=== PATIENT | female | born 1970 | race Hispanic/Latino ===

== ENCOUNTER 2016-10-30 20:01 | Emergency (ER) | payer MEDICAID, OTHER ==
[2016-10-30] MEDS ORDERED: NORCO 7.5/325 PO ONE (21:30)
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
[2016-10-30 22:23] VITALS: BP 123/80
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
== END 2016-10-30 23:49 | disposition home or self-care (01) ==
LOC: ED 20:01
DX: S13.4XXA Sprain of ligaments of cervical spine, initial encounter (principal); F17.200 Nicotine dependence, unspecified, uncomplicated; V49.59XA Passenger injured in collision with other motor vehicles in traffic accident, initial encounter; Y93.9 Activity, unspecified; Y92.9 Unspecified place or not applicable; Y99.9 Unspecified external cause status
CPT/HCPCS: 72072; 72100; 99283

== ENCOUNTER 2016-11-19 10:08 | Emergency (ER) | payer SELFPAY ==
[2016-11-19 10:16] VITALS: BP 148/96
--- NOTE | 2016-11-19 10:43 | XRay Report ---
RIGHT ANKLE, 3 views: History: Right ankle pain. Bone mineralization is normal. No acute osseous abnormality or joint pathology is identified. The soft tissues are unremarkable. Moderate plantar spur is noted. IMPRESSION: No evidence for acute injury. Plantar spur.
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
[2016-11-19] MEDS ORDERED: MOTRIN PO ONE (11:56)
== END 2016-11-19 12:00 | disposition home or self-care (01) ==
LOC: ED 10:08
DX: S93.401A Sprain of unspecified ligament of right ankle, initial encounter (principal); F17.210 Nicotine dependence, cigarettes, uncomplicated; X58.XXXA Exposure to other specified factors, initial encounter; Y93.89 Activity, other specified; Y92.89 Other specified places as the place of occurrence of the external cause; Y99.8 Other external cause status
CPT/HCPCS: 99284

== ENCOUNTER 2016-12-07 15:50 | Inpatient (IN) | payer OTHER ==
[2016-12-07 16:45] LABS: Basophils % (Auto) 0.9 % (0.0-1.8); Eosinophils % (Auto) 1.6 % (0.0-4.3); Hematocrit 48.1 % (30.3-42.9); Hemoglobin 16.2 gm/dl (10.1-14.3); Mean Corpuscular HGB Conc 34 % (30-34); Mean Corpuscular Hemoglobin 32 pg (28-32); Mean Corpuscular Volume 95 fl (79-97); Platelet Count 248 K/mm3 (140-440); Red Blood Count 5.09 M/mm3 (3.65-5.03); Red Cell Distribution Width 14.3 % (13.2-15.2); White Blood Count 6.7 K/mm3 (4.5-11.0)
[2016-12-07 16:48] LABS: Anion Gap 19 mmol/L; BUN/Creatinine Ratio 14.28; Blood Urea Nitrogen 10 mg/dL (7-17); Calcium 9.3 mg/dL (8.4-10.2); Carbon Dioxide 24 mmol/L (22-30); Chloride 96.3 mmol/L (98-107); Glucose 96 mg/dL (65-100); Potassium 4.2 mmol/L (3.6-5.0); Sodium 135 mmol/L (137-145)
[2016-12-07] MEDS ORDERED: ZOFRAN IV ONE (18:07)
[2016-12-07] MEDS ORDERED: NACL 0.9% 1000 ML 1,000 ML IV ONE (18:07)
[2016-12-07] MEDS ORDERED: MORPHINE IV ONE (18:07)
[2016-12-07] MEDS ORDERED: TORADOL IV ONE (18:07)
--- NOTE | 2016-12-07 18:08 | Emergency Department Report ---
ED General Adult HPI - General Chief complaint: Chest Pain Stated complaint: CHEST PAIN Time Seen by Provider: 12/07/16 17:56 Source: patient, EMS, RN notes reviewed Mode of arrival: Wheelchair Limitations: Physical Limitation - History of Present Illness Initial comments: This is a 46-year-old female. She is previously unknown to me. She is brought to the hospital by EMS. The patient presents to the ER complaining of central and subxiphoid and left-sided subcostal chest pain which has been present since approximately 12:00. The pain does not radiate to the back, arms and neck. There is positive cough, positive shortness of breath, positive nausea. There is no diaphoresis. There is no leg pain. There is no leg swelling. The patient denies recent trips greater than 4 hours. Patient has a history of hysterectomy, and reports that she does not take control tablets or estrogen supplementation. She also complains of right lower quadrant abdominal pain, but denies irritated obstructive urinary symptoms. She denies hematemesis of bright red blood per rectum. Her symptoms have been constant since approximately 12:00. The chest pain increases with palpation. The abdominal pain increases with palpation. Pain decreases with rest. -: Gradual, Sudden, hour(s) Location: chest, abdomen Quality: aching Consistency: constant Improves with: rest Worsens with: movement Associated Symptoms: chest pain, shortness of breath, weakness - Related Data Home Medications Medication Instructions Recorded Confirmed Last Taken traMADol [Ultram 50 MG tab] 300 mg PO Q4HR PRN 12/07/16 12/07/16 Unknown Previous Rx's Medication Instructions Recorded Last Taken Type Acetaminophen/Codeine [Tylenol #3] 1 tab PO Q6H PRN #10 tab 06/21/15 Unknown Rx Cyclobenzaprine [Flexeril 10 MG 10 mg PO TID PRN #12 tablet 06/21/15 Unknown Rx TAB] Ibuprofen [Motrin 800 MG tab] 800 mg PO Q8HR PRN #30 tablet 06/21/15 Unknown Rx Acetaminophen/Codeine [Tylenol 1 tab PO Q6H PRN #14 tab 08/04/15 Unknown Rx /Codeine # 3 tab] methOCARBAMOL [Robaxin TAB] 500 mg PO BID #20 tab 08/04/15 Unknown Rx Cyclobenzaprine [Flexeril] 10 mg PO TID PRN #15 tablet 10/30/16 Unknown Rx Ibuprofen [Motrin 600 MG tab] 600 mg PO Q8H PRN #15 tablet 10/30/16 Unknown Rx Naproxen [Naprosyn TAB] 500 mg PO BID #20 tablet 11/19/16 Unknown Rx Allergies Allergy/AdvReac Type Severity Reaction Status Date / Time No Known Allergies Allergy Verified 12/07/16 16:05 ED Review of Systems ROS: Stated complaint: CHEST PAIN Other details as noted in HPI Constitutional: malaise, weakness Eyes: denies: vision change ENT: denies: epistaxis Respiratory: cough, shortness of breath Cardiovascular: chest pain Gastrointestinal: abdominal pain Genitourinary: denies: dysuria Musculoskeletal: as per HPI Skin: denies: lesions Neurological: weakness Psychiatric: anxiety ED Past Medical Hx - Past Medical History Additional medical history: Abnormal vaginal bleeding , Hx. of neck injury @ age 7 - Surgical History Additional Surgical History: Tubal ligation. hysterectomy - Social History Smoking Status: Current Every Day Smoker Substance Use Type: None - Medications Home Medications: Home Medications Medication Instructions Recorded Confirmed Last Taken Type Acetaminophen/Codeine [Tylenol #3] 1 tab PO Q6H PRN #10 tab 06/21/15 Unknown Rx Cyclobenzaprine [Flexeril 10 MG 10 mg PO TID PRN #12 tablet 06/21/15 Unknown Rx TAB] Ibuprofen [Motrin 800 MG tab] 800 mg PO Q8HR PRN #30 tablet 06/21/15 Unknown Rx Acetaminophen/Codeine [Tylenol 1 tab PO Q6H PRN #14 tab 08/04/15 Unknown Rx /Codeine # 3 tab] methOCARBAMOL [Robaxin TAB] 500 mg PO BID #20 tab 08/04/15 Unknown Rx Cyclobenzaprine [Flexeril] 10 mg PO TID PRN #15 tablet 10/30/16 Unknown Rx Ibuprofen [Motrin 600 MG tab] 600 mg PO Q8H PRN #15 tablet 10/30/16 Unknown Rx Naproxen [Naprosyn TAB] 500 mg PO BID #20 tablet 11/19/16 Unknown Rx traMADol [Ultram 50 MG tab] 300 mg PO Q4HR PRN 12/07/16 12/07/16 Unknown History ED Physical Exam - General Limitations: No Limitations General appearance: alert, in no apparent distress - Head Head exam: Present: atraumatic, normocephalic - Eye Eye exam: Present: normal appearance, EOMI. Absent: nystagmus - ENT ENT exam: Present: normal exam, normal orophraynx, mucous membranes moist, normal external ear exam - Neck Neck exam: Present: normal inspection, full ROM. Absent: tenderness, meningismus - Respiratory Respiratory exam: Present: normal lung sounds bilaterally, chest wall tenderness. Absent: respiratory distress, wheezes, rales, rhonchi, stridor - Cardiovascular Cardiovascular Exam: Present: regular rate, normal rhythm, normal heart sounds. Absent: bradycardia, systolic murmur, diastolic murmur, rubs, gallop - GI/Abdominal GI/Abdominal exam: Present: soft, tenderness, normal bowel sounds. Absent: distended, guarding, rebound, rigid, pulsatile mass - Extremities Exam Extremities exam: Present: normal inspection, full ROM, normal capillary refill. Absent: pedal edema, joint swelling, calf tenderness - Back Exam Back exam: Present: normal inspection, full ROM. Absent: tenderness, CVA tenderness (R), CVA tenderness (L), muscle spasm, paraspinal tenderness, vertebral tenderness - Neurological Exam Neurological exam: Present: alert, oriented X3, other (Extraocular movements intact. Tongue midline. No facial droop. Facial sensation intact to light touch in the V1, V2, V3 distribution bilaterally. 5 and 5 strength in 4 extremities.. Sensation is intact to light touch in 4 extremities.). Absent: motor sensory deficit - Psychiatric Psychiatric exam: Present: anxious - Skin Skin exam: Present: warm, dry, intact, normal color. Absent: rash ED Course Vital Signs 12/07/16 12/07/16 12/07/16 16:05 18:59 20:01 Temperature 97.7 F Pulse Rate 74 84 Respiratory 18 18 16 Rate Blood Pressure 134/94 Blood Pressure 130/84 [Right] O2 Sat by Pulse 94 97 Oximetry 12/07/16 12/07/16 12/07/16 20:19 20:25 23:02 Temperature Pulse Rate 89 84 78 Respiratory 16 Rate Blood Pressure 124/73 116/78 Blood Pressure 104/68 [Right] O2 Sat by Pulse 94 Oximetry - Reevaluation(s) Reevaluation #1: 12/07/16 21:27 D/W Dr Rojo, who accepts the patient to her service ED Medical Decision Making - Lab Data Result diagrams: 12/07/16 16:19 12/07/16 16:19 Vital Signs 12/07/16 12/07/16 12/07/16 16:05 18:59 20:01 Temperature 97.7 F Pulse Rate 74 84 Respiratory 18 18 16 Rate Blood Pressure 134/94 Blood Pressure 130/84 [Right] O2 Sat by Pulse 94 97 Oximetry 12/07/16 12/07/16 20:19 20:25 Temperature Pulse Rate 89 84 Respiratory Rate Blood Pressure 124/73 116/78 Blood Pressure [Right] O2 Sat by Pulse Oximetry Labs 12/07/16 12/07/16 12/07/16 16:19 16:19 18:45 WBC 6.7 RBC 5.09 H Hgb 16.2 H Hct 48.1 H MCV 95 MCH 32 MCHC 34 RDW 14.3 Plt Count 248 Lymph % (Auto) 29.1 [place] % (Auto) 7.1 Eos % (Auto) 1.6 Baso % (Auto) 0.9 Lymph # 1.9 [place] # 0.5 Eos # 0.1 Baso # 0.1 Seg Neutrophils % 61.3 Seg Neutrophils # 4.1 PT INR Sodium 135 L Potassium 4.2 Chloride 96.3 L Carbon Dioxide 24 Anion Gap 19 BUN 10 Creatinine 0.7 Estimated GFR > 60 BUN/Creatinine Ratio 14.28 Glucose 96 Calcium 9.3 Total Bilirubin Direct Bilirubin Indirect Bilirubin AST ALT Alkaline Phosphatase Troponin T < 0.010 < 0.010 Total Protein Albumin Albumin/Globulin Ratio Lipase 12/07/16 12/07/16 18:45 18:45 WBC RBC Hgb Hct MCV MCH MCHC RDW Plt Count Lymph % (Auto) [place] % (Auto) Eos % (Auto) Baso % (Auto) Lymph # [place] # Eos # Baso # Seg Neutrophils % Seg Neutrophils # PT 12.8 INR 0.97 Sodium Potassium Chloride Carbon Dioxide Anion Gap BUN Creatinine Estimated GFR BUN/Creatinine Ratio Glucose Calcium Total Bilirubin 0.50 Direct Bilirubin < 0.2 Indirect Bilirubin 0.3 AST 21 ALT 17 Alkaline Phosphatase 134 H Troponin T Total Protein 8.2 Albumin 4.6 Albumin/Globulin Ratio 1.3 Lipase 21 - EKG Data -: EKG Interpreted by Mt EKG shows normal: sinus rhythm Rate: normal - EKG Data When compared to previous EKG there are: previous EKG unavailable 12/07/16 21:01 Normal sinus, 67 bpm, normal axis, normal intervals, incomplete right bundle branch block, abnormal EKG, not morphologically consistent with STEMI, there is no prior for comparison - Radiology Data Radiology results: report reviewed, image reviewed interpreted by me: X-ray the chest is negative for acute disease CT scan of the chest is negative. CT scan of the abdomen and pelvis The perales in the gallbladder are mildly prominent. Cannot exclude gallbladder disease. Perales of the right-sided colon and hepatic flexure and proximal sigmoid colon. There is decreased density. Cannot exclude nonspecific colitis. No evidence of bowel obstruction. - Medical Decision Making Differential diagnosis: Acute coronary syndrome, pneumonia, pericarditis, pleuritis, myocarditis, dissection, GERD, gastritis, pancreatitis, urinary tract infection, colitis, diverticulitis, appendicitis Assessment and plan: 46-year-old female with chest pain or shortness of breath, and subsequent interval development of abdominal pain. She is afebrile, with reassuring vital signs. CT scan of the chest negative for acute disease. Troponin negative. EKG nonspecific. Patient also has a tender lower abdomen, still currently awaiting a urinalysis. Patient will be treated empirically with Flagyl and Levaquin. Aspirin is ordered. Hospital physician is paged to facilitate admission. Critical care attestation.: If time is entered above; I have spent that time in minutes in the direct care of this critically ill patient, excluding procedure time. ED Disposition Clinical Impression: Chest pain, Abdominal pain Disposition: OP ADMIT IP TO THIS HOSP Is pt being admited?: Yes Condition: Good
[2016-12-07] MEDS ORDERED: NACL ONE (18:25)
--- NOTE | 2016-12-07 18:45 | XRay Report ---
FINAL REPORT PROCEDURE: AP upright chest x-ray TECHNIQUE: Chest radiograph anteroposterior view. CPT 83532 HISTORY: cp sob COMPARISON: No prior studies are available for comparison. FINDINGS: Heart size and pulmonary vasculature appear normal. Lungs are clear. No infiltrates masses or effusions are seen. No evidence of pneumothorax. No acute bony abnormalities are identified. IMPRESSION: Negative exam..
[2016-12-07 19:15] LABS: INR 0.97 (0.87-1.13)
[2016-12-07 19:26] LABS: Alanine Aminotransferase 17 units/L (7-56); Albumin 4.6 g/dL (3.9-5); Albumin/Globulin Ratio 1.3 %; Alkaline Phosphatase 134 units/L (35-129); Bilirubin,Direct < 0.2 mg/dL (0-0.2); Bilirubin,Indirect 0.3 mg/dL; Lipase 21 units/L (13-60); Total Protein 8.2 g/dL (6.3-8.2)
--- NOTE | 2016-12-07 19:57 | Cat Scan Report ---
FINAL REPORT PROCEDURE: CT ABDOMEN PELVIS W CON TECHNIQUE: Computerized axial tomography of the abdomen and pelvis was performed during the IV injection of iodinated nonionic contrast. HISTORY: lower abd pain COMPARISON: No prior studies are available for comparison. FINDINGS: Lower Lung flores: No focal abnormality seen. Upper Abdomen: Liver density is mildly diffusely decreased consistent with fatty infiltration. The wall the gallbladder is mildly prominent and enhances mildly. I cannot exclude mild thickening. No calcified gallstones are seen. The adrenal glands, the pancreas and spleen are unremarkable. Kidneys, Ureters and Urinary bladder: No abnormalities are visualized. Retroperitoneum: Abdominal aorta appears normal. No aneurysm is seen. Nonspecific subcentimeter lymph nodes are seen in the retroperitoneum. No pathologically enlarged lymph nodes are identified. Bowel: Mild sigmoid diverticulosis is visualized without evidence of diverticulitis. The perales of the right side of the colon appear mildly prominent in there is mild decreased density in the submucosal layer. This extends into hepatic flexure and proximal transverse colon. I cannot exclude a nonspecific mild colitis. No evidence of bowel obstruction or ascites. The appendix is not visualized. Small bowel loops show no focal abnormalities per Reproductive organs: Uterus is surgically absent. No abnormal adnexal masses are seen. Other: No acute bony abnormalities are identified. IMPRESSION: Fatty infiltration of the liver. Perales of the gallbladder mildly prominent. I cannot exclude gallbladder disease. If clinically indicated gallbladder ultrasound could be obtained for further evaluation. The perales of the right side of the colon hepatic flexure and proximal sigmoid colon appear mildly thickened and there is decreased density in the submucosal layer of the right side of the colon. I cannot exclude a mild nonspecific colitis. No evidence of bowel obstruction. Mild diverticulosis sigmoid colon. Bowel loops otherwise are unremarkable. Prior hysterectomy.
--- NOTE | 2016-12-07 20:08 | Cat Scan Report ---
FINAL REPORT PROCEDURE: CT ANGIO CHEST TECHNIQUE: Computerized tomographic angiography of the chest was performed during the IV injection of iodinated nonionic contrast including image processing. The image data was postprocessed using 2-dimensional multiplanar reformatted (MPR) and 3-dimensional (MIP and/or volume rendered) techniques. HISTORY: cp sob COMPARISON: No prior studies are available for comparison. FINDINGS: Pulmonary outflow tract, right and left main pulmonary arteries and their proximal branches: Clear, no filling defects seen to suggest pulmonary embolus. Pericardium: No evidence of pericardial effusion. Thoracic aorta: No evidence of aneurysmal dilatation or dissection. Coronary arteries: Are unremarkable. Mediastinum and hilar regions: Nonspecific subcentimeter lymph nodes are visualized. No pathologically enlarged lymph nodes or masses are identified. Lung Pagan: Clear Upper abdomen: No acute or focal abnormality is seeen. Other: No acute bony abnormalities are identified. IMPRESSION: Negative exam. No evidence of pulmonary embolus.
[2016-12-07] MEDS: NITROSTAT SL PRN ×2 (20:19→20:25)
[2016-12-07] MEDS ORDERED: BABY ASPIRIN PO ONE (21:03)
[2016-12-07] MEDS ORDERED: LEVAQUIN PO ONE (21:03)
[2016-12-07] MEDS ORDERED: FLAGYL PO ONE (21:03)
[2016-12-07] MEDS ORDERED: MILK OF MAGNESIA PO PRN (21:59)
[2016-12-07] MEDS ORDERED: TYLENOL PO PRN (21:59)
[2016-12-07] MEDS ORDERED: DULCOLAX PR PRN (21:59)
--- NOTE | 2016-12-07 22:32 | History and Physical Report ---
History of Present Illness Date of examination: 12/07/16 History of present illness: 46-year-old woman with a history of depression comes emergency room with complaints of abdominal pain. Pain is described as crampy, intermittent in nature lasting 5 minutes, intensity 7/10, no radiation, cannot identify exacerbating or relieving factors. Also complaining of chest pain in the left substernal area which she describes as sharp pain, constant for 4 hours, intensity 5/10, no radiation. No nausea vomiting, complaints of shortness of breath, palpitation Patient denies cough, abdominal pain, hematochezia, dysuria, frequency, focal weakness, dysarthria, fever chills, polydipsia polyuria, hot or cold intolerance , easy bruisability, or rash or bleeding from mucosal membrane, rhinorrhea, epistaxis, earache, tinnitus, blurry vision, eye discharge, anxiety, depression. Other review of systems negative PAST SURGICAL HISTORY: Hysterectomy, tubal ligation SOCIAL HISTORY: Smoke half pack a day, no alcohol or drug FAMILY HISTORY: Hypertension Medications and Allergies Allergies Allergy/AdvReac Type Severity Reaction Status Date / Time No Known Allergies Allergy Verified 12/07/16 16:05 Home Medications Medication Instructions Recorded Confirmed Last Taken Type Acetaminophen/Codeine [Tylenol #3] 1 tab PO Q6H PRN #10 tab 06/21/15 Unknown Rx Cyclobenzaprine [Flexeril 10 MG 10 mg PO TID PRN #12 tablet 06/21/15 Unknown Rx TAB] Ibuprofen [Motrin 800 MG tab] 800 mg PO Q8HR PRN #30 tablet 06/21/15 Unknown Rx Acetaminophen/Codeine [Tylenol 1 tab PO Q6H PRN #14 tab 08/04/15 Unknown Rx /Codeine # 3 tab] methOCARBAMOL [Robaxin TAB] 500 mg PO BID #20 tab 08/04/15 Unknown Rx Cyclobenzaprine [Flexeril] 10 mg PO TID PRN #15 tablet 10/30/16 Unknown Rx Ibuprofen [Motrin 600 MG tab] 600 mg PO Q8H PRN #15 tablet 10/30/16 Unknown Rx Naproxen [Naprosyn TAB] 500 mg PO BID #20 tablet 11/19/16 Unknown Rx traMADol [Ultram 50 MG tab] 300 mg PO Q4HR PRN 12/07/16 12/07/16 Unknown History Active Meds: Active Medications Acetaminophen (Tylenol) 650 mg PO Q4H PRN PRN Reason: Pain MILD(1-3)/Fever >100.5/RENEE Bisacodyl (Dulcolax) 10 mg CA QDAY PRN PRN Reason: Constipation unrelieved by MOM Enoxaparin Sodium (Lovenox) 40 mg SUB-Q QDAY JESSICA Sodium Chloride (Nacl 0.45% 1000 Ml) 1,000 mls @ 125 mls/hr IV DIRECT JESSICA Levofloxacin/Dextrose (Levaquin 750mg/150ml) 750 mg in 150 mls @ 100 mls/hr IV Q24HR JESSICA PRN Reason: Protocol Magnesium Hydroxide (Milk Of Magnesia) 30 ml PO Q4H PRN PRN Reason: Constipation Metronidazole (Flagyl) 500 mg PO Q8H JESSICA Morphine Sulfate (Morphine) 2 mg IV Q4H PRN PRN Reason: Pain, Moderate (4-6) Nitroglycerin (Nitrostat) 0.4 mg SL .Q5MIN PRN PRN Reason: Chest Pain Last Admin: 12/07/16 20:25 Dose: 0.4 mg Ondansetron HCl (Zofran) 4 mg IV Q8H PRN PRN Reason: N/V unrelieved by Reglan Exam - Physical Exam Narrative exam: Gen. appearance: Patient lying in bed, no apparent distress HEENT: Normocephalic, atraumatic, pupils equally round and reactive to light, extraocular movement intact, and no sclericterus,. No JVD or thyromegaly or nodule,neck supple, no carotid bruit ,mucous membranes moist, no exudate or erythema Heart: S1, S2, regular rate and rhythm Lungs: Clear to auscultation bilaterally, breathing comfortable Abdomen: Positive bowel sounds, nontender, nondistended, no organomegaly Extremity: No edema, cyanosis, clubbing Skin: No rash, nodules, warm, dry Neuro: Oriented 3, cranial nerves II-12 intact, speech is fluent, motor and sensory intact - Constitutional Vitals: Temp Pulse Resp BP Pulse Ox 97.7 F 84 16 116/78 97 12/07/16 16:05 12/07/16 20:25 12/07/16 20:01 12/07/16 20:25 12/07/16 20:01 Results - Labs CBC & Chem 7: 12/07/16 16:19 12/07/16 16:19 Labs: Abnormal lab results 12/07/16 12/07/16 12/07/16 Range/Units 16:19 16:19 18:45 RBC 5.09 H (3.65-5.03) M/mm3 Hgb 16.2 H (10.1-14.3) gm/dl Hct 48.1 H (30.3-42.9) % Sodium 135 L (137-145) mmol/L Chloride 96.3 L (98-107) mmol/L Alkaline Phosphatase 134 H (35-129) units/L - Imaging and Cardiology EKG: image reviewed Chest x-ray: image reviewed CT scan - abdomen: report reviewed CT scan - chest: report reviewed CT scan - pelvis: report reviewed Assessment and Plan Acute colitis Chest pain, rule out ACS Depression Admit to medicine Placed on bowel rest, start IV fluid, IV Levaquin and Flagyl Consult GI Check cardiac enzymes, stress test, IV morphine Start DVT prophylaxis
[2016-12-07 22:51] LABS: Bilirubin,Urine NEG (Negative); Blood,Urine NEG (Negative); Ketones,Urine NEG (Negative); Leukocyte Esterase,Urine NEG (Negative); Nitrite,Urine NEG (Negative); Protein,Urine <15 mg/dL mg/dL (Negative); Urobilinogen,Urine < 2.0 mg/dL (<2.0)
[2016-12-07] MEDS: FLAGYL PO SCH (23:00)
[2016-12-07] MEDS: ZOFRAN IV PRN (23:19)
[2016-12-07] MEDS: MORPHINE IV PRN (23:19)
[2016-12-07 23:22] LABS: Creatine Kinase 79 units/L (30-135); Creatine Kinase MB < 1.0 ng/mL (0.0-4.0)
[2016-12-07] MEDS: NACL 0.45% 1000 ML 1,000 ML IV SCH (23:25)
--- NOTE | 2016-12-08 02:12 | Admit Criteria Form ---
Admission Criteria Documentation: ABDOMINAL PAIN Clinical Indications for Admission to Inpatient Care (Place 'X' for any and all applicable criteria): Admission is indicated for ANY ONE of the following(1)(2)(3)(4)(5): [X ]I. Inpatient admission required rather than observation care (Also use Abdominal Pain: Observation Care, as appropriate) because of ANY ONE of the following: [ ]a) Severe pain requiring acute inpatient management [X ]b) Identification of etiology/finding that requires inpatient care (eg, aortic dissection, free air) [ ]c) Absent bowel sounds with complete ileus(6) [ ]d) Suspected toxic megacolon [ ]e) Severe electrolyte abnormalities requiring inpatient care [ ]f) High fever or infection requiring inpatient admission as indicated by ANY ONE of following(7)(8): [ ] i) Appropriate outpatient or observational care antimicrobial treatment unavailable, not effective, or not feasible [ ] ii) Documented bacteremia [ ] iii) Temperature > 104.9 degrees F (oral) [ ] iv) T >103.1 F (oral) or < 96.8 F(rectal) that does not respond to all emergency treatment measures [ ]g) Signs of intestinal obstruction [B] [ ]h) Hemodynamic instability [ ]i) IV fluid to replace significant ongoing losses (greater than 3 L/m2 per day) (12)(13) [ ]j) Percutaneous or open drainage (eg, abscess, biliary tract ) procedures [ ]k) Parenteral nutrition regimen that must be implemented on inpatient basis [ X]l) Other condition,treatment or monitoring requiring inpatient admission. [ ]II. Peritoneal signs present [ ]III. Surgery needed that cannot be performed on an ambulatory basis. [ ]IV. Evaluation requires patient to not eat or drink for extended period ( eg, more than 24 hours). [ ]V. Contraindications and/or Inappropriate clinical situations for Observational Care in patients with abdominal pain, when ANY ONE of the following is required: [ ]a) Thorough evaluation is required to prevent catastrophic events due to delays in diagnosing (e.g.Mesenteric ischemia) 1,3 [ ]b) Patient with severe pathology or with chronic symptoms unlikely to improve in the ED stay (3) [ ]. General contraindications and/or Inappropriate clinical situations for Observational Care in patients with abdominal pain, when ANY ONE of the following is required: [ ]a) Prediction of prolongation of LOS based on ANY ONE of the following may be considered as a contraindication for observational care 2, 3, 4, 5, 6, 7, 8, 9, 10, 11 [ ]i) Age > 65 yrs. [ ]ii) Patient arriving by ambulance [ ]iii) Patient with high acuity [ ]iv) Patient requiring vital sign monitoring [ ]v) Patient on IV medication [ ]b) Systolic blood pressures 180mmHg 3,12 [ ]c) Patient with altered mental status including delirium and other alteration of consciousness, (3) [ ]d) Patient whose discharge disposition will be to a snf home or rehabilitation home should not be managed in Emergency Department Observation Unit. CMS rule requires 3 days hospital stay before such placement.3,13 [ ]e) Patient with failure to thrive due to broad array of etiologies 3,16,17 [ ]f) Inability to ambulate 3,14 Extended stay beyond goal length of stay may be needed for(2)(3): [ ]a) Persistent abdominal pain with suspected intra-abdominal process [ ]b) Diagnosed condition requiring continued stay (e.g., pancreatitis, complicated diverticulitis) [ ]c) Surgery (e.g., colectomy) The original [employer] content created by [employer] has been revised. The portions of the content which have been revised are identified through the use of italic text or in bold, and [facility] has neither reviewed nor approved the modified material.All other unmodified content is copyright [employer]. Please see references footnoted in the original [employer] edition 2016 Admission Criteria Met: Yes
[2016-12-08 05:03] LABS: Basophils % (Auto) 0.7 % (0.0-1.8); Eosinophils % (Auto) 1.6 % (0.0-4.3); Hematocrit 42.4 % (30.3-42.9); Hemoglobin 14.4 gm/dl (10.1-14.3); Mean Corpuscular HGB Conc 34 % (30-34); Mean Corpuscular Hemoglobin 32 pg (28-32); Mean Corpuscular Volume 95 fl (79-97); Platelet Count 203 K/mm3 (140-440); Red Blood Count 4.47 M/mm3 (3.65-5.03); Red Cell Distribution Width 13.5 % (13.2-15.2); White Blood Count 6.9 K/mm3 (4.5-11.0)
[2016-12-08 05:06] LABS: Creatine Kinase 76 units/L (30-135)
[2016-12-08 05:09] LABS: Creatine Kinase MB < 1.0 ng/mL (0.0-4.0)
[2016-12-08] MEDS: MORPHINE IV PRN ×3 (05:26→19:59)
[2016-12-08] MEDS: FLAGYL PO SCH ×3 (06:56→22:07)
[2016-12-08] MEDS ORDERED: LEXISCAN IV ONE (08:18)
[2016-12-08 08:23] LABS: Anion Gap 22 mmol/L; BUN/Creatinine Ratio 12.22; Blood Urea Nitrogen 11 mg/dL (7-17); Calcium 8.4 mg/dL (8.4-10.2); Carbon Dioxide 23 mmol/L (22-30); Glucose 92 mg/dL (65-100); Potassium 4.5 mmol/L (3.6-5.0); Sodium 139 mmol/L (137-145)
[2016-12-08] MEDS: LOVENOX SUB-Q SCH (11:08)
[2016-12-08] MEDS: NITROSTAT SL PRN (11:09)
[2016-12-08] MEDS: ZOFRAN IV PRN (11:14)
[2016-12-08] MEDS: LEVAQUIN 750MG/150ML 750 MG/150 ML BAG IV SCH (11:15)
[2016-12-08] MEDS ORDERED: ZOFRAN IV PRN (17:06)
--- NOTE | 2016-12-08 17:45 | Progress Note ---
Assessment and Plan Assessment and plan: 46-year-old woman with a history of depression, tobacco abuse comes emergency room with complaints of abdominal pain. Pain is described as crampy, intermittent in nature lasting 5 minutes, intensity 7/10, no radiation, cannot identify exacerbating or relieving factors. Also complaining of chest pain in the left substernal area which she describes as sharp pain, constant for 4 hours , intensity 5/10, no radiation. , complaints of shortness of breath, palpitation. The patient has been having some nausea and vomiting since presentation to the ER. Although did not experience this previously. Patient denied cough, abdominal pain, hematochezia, dysuria, frequency, focal weakness, dysarthria, fever chills, polydipsia polyuria, hot or cold intolerance , easy bruisability, or rash or bleeding from mucosal membrane, rhinorrhea, epistaxis, earache, tinnitus, blurry vision, eye discharge, anxiety, depression. Other review of systems negative Acute colitis possible, no fever, pain is generalized, but physical exam benign when patient is distracted. Continue abx, pain control, Await GI input Chest pain, rule out ACS- Atypical. Likely costochondiritis, reproducible, Stress test is negative Depression Resume home meds Tobacco Abuse Extensive counselling greater than 15 minutes provided. Patient verbalized understanding, Resources provided DVT/GI prophy Heparin and H2 Sebastian Plan of care discussed in detail with the patient. History Interval history: Patient seen and examined in no acute distress. Continues to complain of abdominal discomfort although generalized no focal point is noted. Still with nausea and vomiting nonbilious nonbloody. No fever. Stress test was done this morning that was negative no other acute pathology reported by staff. Hospitalist Physical - Physical exam Narrative exam: VITAL SIGNS: Reviewed. GENERAL: The patient appeared well nourished and normally developed. Vital signs as documented. HEAD: No signs of head trauma. EYES: Pupils are equal. Extraocular motions intact. EARS: Hearing grossly intact. MOUTH: Oropharynx is normal. NECK: No adenopathy, no JVD. CHEST: Chest with clear breath sounds bilaterally. No wheezes, rales, or rhonchi. CARDIAC: Regular rate and rhythm. S1 and S2, without murmurs, gallops, or rubs. VASCULAR: No Edema. Peripheral pulses normal and equal in all extremities. ABDOMEN: Soft, dull tenderness no rebound or guarding.. No sign of distention. no masses palpated. Bowel Sounds normal. MUSCULOSKELETAL: Good range of motion of all major joints. Extremities without clubbing, cyanosis or edema. NEUROLOGIC EXAM: Alert and oriented x 3. No focal sensory or strength deficits. Speech normal. Follows commands. PSYCHIATRIC: Mood normal. SKIN: No rash or lesions. - Constitutional Vitals: Temp Pulse Resp BP Pulse Ox 97.7 F 60 18 110/64 98 12/08/16 14:17 12/08/16 14:17 12/08/16 14:17 12/08/16 14:17 12/08/16 14:17 Results - Labs CBC & Chem 7: 12/08/16 04:37 12/08/16 04:37 Labs: Laboratory Last Values WBC 6.9 K/mm3 (4.5-11.0) 12/08/16 04:37 RBC 4.47 M/mm3 (3.65-5.03) 12/08/16 04:37 Hgb 14.4 gm/dl (10.1-14.3) H 12/08/16 04:37 Hct 42.4 % (30.3-42.9) 12/08/16 04:37 MCV 95 fl (79-97) 12/08/16 04:37 MCH 32 pg (28-32) 12/08/16 04:37 MCHC 34 % (30-34) 12/08/16 04:37 RDW 13.5 % (13.2-15.2) 12/08/16 04:37 Plt Count 203 K/mm3 (140-440) 12/08/16 04:37 Lymph % (Auto) 24.8 % (13.4-35.0) 12/08/16 04:37 [place] % (Auto) 7.4 % (0.0-7.3) H 12/08/16 04:37 Eos % (Auto) 1.6 % (0.0-4.3) 12/08/16 04:37 Baso % (Auto) 0.7 % (0.0-1.8) 12/08/16 04:37 Lymph # 1.7 K/mm3 (1.2-5.4) 12/08/16 04:37 [place] # 0.5 K/mm3 (0.0-0.8) 12/08/16 04:37 Eos # 0.1 K/mm3 (0.0-0.4) 12/08/16 04:37 Baso # 0.0 K/mm3 (0.0-0.1) 12/08/16 04:37 Seg Neutrophils % 65.5 % (40.0-70.0) 12/08/16 04:37 Seg Neutrophils # 4.5 K/mm3 (1.8-7.7) 12/08/16 04:37 PT 12.8 Sec. (12.2-14.9) 12/07/16 18:45 INR 0.97 (0.87-1.13) 12/07/16 18:45 Sodium 139 mmol/L (137-145) 12/08/16 04:37 Potassium 4.5 mmol/L (3.6-5.0) 12/08/16 04:37 Chloride 99.0 mmol/L (98-107) 12/08/16 04:37 Carbon Dioxide 23 mmol/L (22-30) 12/08/16 04:37 Anion Gap 22 mmol/L 12/08/16 04:37 BUN 11 mg/dL (7-17) 12/08/16 04:37 Creatinine 0.9 mg/dL (0.7-1.2) 12/08/16 04:37 Estimated GFR > 60 ml/min 12/08/16 04:37 BUN/Creatinine Ratio 12.22 % 12/08/16 04:37 Glucose 92 mg/dL (65-100) 12/08/16 04:37 Calcium 8.4 mg/dL (8.4-10.2) 12/08/16 04:37 Total Bilirubin 0.50 mg/dL (0.1-1.2) 12/07/16 18:45 Direct Bilirubin < 0.2 mg/dL (0-0.2) 12/07/16 18:45 Indirect Bilirubin 0.3 mg/dL 12/07/16 18:45 AST 21 units/L (5-40) 12/07/16 18:45 ALT 17 units/L (7-56) 12/07/16 18:45 Alkaline Phosphatase 134 units/L (35-129) H 12/07/16 18:45 Total Creatine Kinase 76 units/L (30-135) 12/08/16 04:37 CK-MB (CK-2) < 1.0 ng/mL (0.0-4.0) 12/08/16 04:37 CK-MB (CK-2) Rel Index 1.3 (0-4) 12/08/16 04:37 Troponin T < 0.010 ng/mL (0.00-0.029) 12/08/16 04:37 Total Protein 8.2 g/dL (6.3-8.2) 12/07/16 18:45 Albumin 4.6 g/dL (3.9-5) 12/07/16 18:45 Albumin/Globulin Ratio 1.3 % 12/07/16 18:45 Lipase 21 units/L (13-60) 12/07/16 18:45 Urine Color Yellow (Yellow) 12/07/16 22:02 Urine Turbidity Clear (Clear) 12/07/16 22:02 Urine pH 6.0 (5.0-7.0) 12/07/16 22:02 Ur Specific [place] > 1.059 (1.003-1.030) H 12/07/16 22:02 Urine Protein <15 mg/dl mg/dL (Negative) 12/07/16 22:02 Urine Glucose (UA) Neg mg/dL (Negative) 12/07/16 22:02 Urine Ketones Neg mg/dL (Negative) 12/07/16 22:02 Urine Blood Neg (Negative) 12/07/16 22:02 Urine Nitrite Neg (Negative) 12/07/16 22:02 Urine Bilirubin Neg (Negative) 12/07/16 22:02 Urine Urobilinogen < 2.0 mg/dL (<2.0) 12/07/16 22:02 Ur Leukocyte Esterase Neg (Negative) 12/07/16 22:02 Urine WBC (Auto) 0.0 /HPF (0.0-6.0) 12/07/16 22:02 Urine RBC (Auto) 0.0 /HPF (0.0-6.0) 12/07/16 22:02 - Imaging and Cardiology CT scan - abdomen: image reviewed (no acute pathology visible to me)
[2016-12-08] MEDS: NACL 0.45% 1000 ML 1,000 ML IV SCH (17:53)
[2016-12-08] MEDS ORDERED: DESYREL PO SCH (22:00)
[2016-12-09] MEDS: NACL 0.45% 1000 ML 1,000 ML IV SCH (06:00)
[2016-12-09] MEDS: MORPHINE IV PRN ×2 (06:01→11:36)
[2016-12-09] MEDS ORDERED: FLEXERIL PO PRN (07:23)
--- NOTE | 2016-12-09 09:13 | Gastroenterology Consultation ---
<TRAVIS VENCES - Last Filed: 12/09/16 09:13> History of Present Illness - Reason for Consult Consult date: 12/09/16 colitis Requesting physician: CHRISTINE SHAH - History of Present Illness Patient is a 46 y/o female presented to the ER with c/o CP, abd pain, and N/V. Cardiac enzymes and stress test were negative. Abdominal CT revealed mild nonspecific colitis and mildly prominent perales of gallbladder. This morning pt was resting in her bed without distress. States abd pain and N/V has now resolved and is requesting her diet be advanced to a regular diet. Denies N/V episodes prior to admission or in correlation with eating. Denies fever, wt loss , abd pain, hematemesis, diarrhea, constipation, or hematochezia. No hx or Fhx of IBD. No previous endoscopies. PMH significant for depression. Past History Past Medical History: other (depression) Past Surgical History: hysterectomy, Other (tubal ligation) Social history: smoking. denies: alcohol abuse Family history: CAD Medications and Allergies Allergies Allergy/AdvReac Type Severity Reaction Status Date / Time No Known Allergies Allergy Verified 12/07/16 16:05 Home Medications Medication Instructions Recorded Confirmed Last Taken Type Acetaminophen/Codeine [Tylenol 1 tab PO Q6H PRN #10 tab 12/09/16 Unknown Rx /Codeine # 3 tab] Ciprofloxacin HCl [Ciprofloxacin 500 mg PO Q12H #10 tab 12/09/16 Unknown Rx TAB] metroNIDAZOLE [Flagyl TAB] 500 mg PO Q8H #7 tablet 12/09/16 Unknown Rx traZODone [Desyrel] 300 mg PO QHS #14 tablet 12/09/16 Unknown Rx Active Meds: Active Medications Acetaminophen (Tylenol) 650 mg PO Q4H PRN PRN Reason: Pain MILD(1-3)/Fever >100.5/RENEE Last Admin: 12/07/16 23:19 Dose: 650 mg Bisacodyl (Dulcolax) 10 mg [place] QDAY PRN PRN Reason: Constipation unrelieved by MOM Cyclobenzaprine HCl (Flexeril) 10 mg PO TID PRN PRN Reason: Muscle Spasm Enoxaparin Sodium (Lovenox) 40 mg SUB-Q QDAY JESSICA Last Admin: 12/08/16 11:08 Dose: 40 mg Sodium Chloride (Nacl 0.45% 1000 Ml) 1,000 mls @ 125 mls/hr IV DIRECT JESSICA Last Admin: 12/09/16 06:00 Dose: 125 mls/hr Levofloxacin/Dextrose (Levaquin 750mg/150ml) 750 mg in 150 mls @ 100 mls/hr IV Q24HR JESSICA PRN Reason: Protocol Last Admin: 12/08/16 11:15 Dose: 100 mls/hr Magnesium Hydroxide (Milk Of Magnesia) 30 ml PO Q4H PRN PRN Reason: Constipation Methocarbamol (Robaxin) 500 mg PO BID JESSICA Metronidazole (Flagyl) 500 mg PO Q8H [facility] Last Admin: 12/08/16 22:07 Dose: 500 mg Morphine Sulfate (Morphine) 2 mg IV Q4H PRN PRN Reason: Pain, Moderate (4-6) Last Admin: 12/09/16 06:01 Dose: 2 mg Nitroglycerin (Nitrostat) 0.4 mg SL .Q5MIN PRN PRN Reason: Chest Pain Last Admin: 12/08/16 11:09 Dose: 0.4 mg Ondansetron HCl (Zofran) 4 mg IV Q4H PRN PRN Reason: Nausea And Vomiting Last Admin: 12/08/16 17:51 Dose: 4 mg Trazodone HCl (Desyrel) 300 mg PO QHS [facility] Last Admin: 12/08/16 23:37 Dose: 300 mg Review of Systems - Review of Systems All systems: negative Cardiovascular: chest pain Gastrointestinal: abdominal pain, nausea, vomiting Exam - Constitutional Vital Signs: Temp Pulse Resp BP Pulse Ox 97.9 F 51 L 18 120/70 95 12/08/16 23:00 12/08/16 23:00 12/09/16 06:01 12/08/16 23:00 12/09/16 09:01 General appearance: no acute distress, well-nourished, obese - EENT Eyes: PERRL, EOM intact ENT: hearing intact - Neck Neck: supple, normal ROM - Respiratory Respiratory: bilateral: CTA - Cardiovascular Rhythm: regular Heart Sounds: Present: S1 & S2 Extremities: No edema - Gastrointestinal General gastrointestinal: Present: soft, tender (generalized tenderness to palpation), non-distended, normal bowel sounds - Integumentary Integumentary: Present: warm, dry - Neurologic Neurological: alert and oriented x3 - Psychiatric Psychiatric: appropriate mood/affect, cooperative - Labs CBC & Chem 7: 12/08/16 04:37 12/08/16 04:37 Assessment and Plan 1.colitis -afebrile -WBC-WNL -abd CT -revealed perales of gallbladder mildly prominent and mild nonspecific colitis -clinically pt is asymptomatic denying abd pain, N/V or diarrhea -continue current medications -continue supportive care -advance diet as tolerated -pt will possibly need further work-up as an outpatient for gallbladder disease with an u/s -okay to d/c pt from GI standpoint with a f/u appt in 2 weeks -discussed with patient, office information and card given <JESIKA CORREA - Last Filed: 12/09/16 11:10> Medications and Allergies Active Meds: Active Medications Acetaminophen (Tylenol) 650 mg PO Q4H PRN PRN Reason: Pain MILD(1-3)/Fever >100.5/RENEE Last Admin: 12/07/16 23:19 Dose: 650 mg Bisacodyl (Dulcolax) 10 mg [place] QDAY PRN PRN Reason: Constipation unrelieved by MOM Cyclobenzaprine HCl (Flexeril) 10 mg PO TID PRN PRN Reason: Muscle Spasm Enoxaparin Sodium (Lovenox) 40 mg SUB-Q QDAY [facility] Last Admin: 12/08/16 11:08 Dose: 40 mg Sodium Chloride (Nacl 0.45% 1000 Ml) 1,000 mls @ 125 mls/hr IV DIRECT JESSICA Last Admin: 12/09/16 06:00 Dose: 125 mls/hr Levofloxacin/Dextrose (Levaquin 750mg/150ml) 750 mg in 150 mls @ 100 mls/hr IV Q24HR JESSICA PRN Reason: Protocol Last Admin: 12/08/16 11:15 Dose: 100 mls/hr Magnesium Hydroxide (Milk Of Magnesia) 30 ml PO Q4H PRN PRN Reason: Constipation Methocarbamol (Robaxin) 500 mg PO BID JESSICA Metronidazole (Flagyl) 500 mg PO Q8H JESSICA Last Admin: 12/09/16 09:20 Dose: 500 mg Morphine Sulfate (Morphine) 2 mg IV Q4H PRN PRN Reason: Pain, Moderate (4-6) Last Admin: 12/09/16 06:01 Dose: 2 mg Nitroglycerin (Nitrostat) 0.4 mg SL .Q5MIN PRN PRN Reason: Chest Pain Last Admin: 12/08/16 11:09 Dose: 0.4 mg Ondansetron HCl (Zofran) 4 mg IV Q4H PRN PRN Reason: Nausea And Vomiting Last Admin: 12/08/16 17:51 Dose: 4 mg Trazodone HCl (Desyrel) 300 mg PO QHS JESSICA Last Admin: 12/08/16 23:37 Dose: 300 mg Exam - Constitutional Vital Signs: Temp Pulse Resp BP Pulse Ox 97.6 F 68 18 107/55 95 12/09/16 07:00 12/09/16 07:00 12/09/16 07:00 12/09/16 07:00 12/09/16 09:01 - Labs CBC & Chem 7: 12/08/16 04:37 12/08/16 04:37 Assessment and Plan - Patient Problems (1) Abdominal pain Current Visit: Yes Status: Acute Qualifiers: Abdominal location: A Plan to address problem: The patient was seen and examined. Outpatient u/s of RUQ should be considered for better evaluation of possible stone disease. Conservative care at the present time. Home at your discretion. Thank you for asking us to see her in consultation.
[2016-12-09] MEDS: FLAGYL PO SCH ×2 (09:20→16:37)
[2016-12-09] MEDS ORDERED: ROBAXIN PO SCH (10:00)
[2016-12-09 10:08] VITALS: BP 107/55
--- NOTE | 2016-12-09 10:13 | Discharge Summary ---
Providers - Providers Date of Admission: 12/07/16 21:59 Date of discharge: 12/09/16 Attending physician: RAFAEL TORRES MD 12/07/16 22:04 Consult to Physician [CONS] Routine Consulting Provider: VANESA COATES Reason For Exam: colitis Place consult to:: gi Notified:: y Was contact made?: Yes If yes, spoke with:: shu/zandra maradiaga Time called:: 08:00 Primary care physician: [employer]STRUCTOR [employer] TECHNICIAN Hospitalization Reason for admission: abdominal pain, chest pain Condition: Good Hospital course: 46-year-old woman with a history of depression, tobacco abuse comes emergency room with complaints of abdominal pain. Pain is described as crampy, intermittent in nature lasting 5 minutes, intensity 7/10, no radiation, cannot identify exacerbating or relieving factors. Also complaining of chest pain in the left substernal area which she describes as sharp pain, constant for 4 hours , intensity 5/10, no radiation. , complaints of shortness of breath, palpitation. The patient has been having some nausea and vomiting since presentation to the ER. Although did not experience this previously. Patient resumed pain control with improvement of nausea vomiting no acute pathology was noted. Abdominal exam was benign, patient eventually reported that she's been suffering from depression although she denies any suicidal or homicidal ideation. She reports son was recently psych hospital and subsequently this breath she is level of stress. She is going to follow with psychiatrist outpatient. Her medications were reviewed with did have extensive discussion about tobacco abuse and she promises that she will quit. She is clinically stable at this time for discharge. Stress test was negative Patient denied cough, abdominal pain, hematochezia, dysuria, frequency, focal weakness, dysarthria, fever chills, polydipsia polyuria, hot or cold intolerance , easy bruisability, or rash or bleeding from mucosal membrane, rhinorrhea, epistaxis, earache, tinnitus, blurry vision, eye discharge, anxiety, depression. Other review of systems negative. Discharge diagnosis Acute colitis with intractable nausea vomiting Chest pain Atypical. Likely costochondiritis. Depression Tobacco Abuse Disposition: TO HOME OR SELFCARE Time spent for discharge: 35 mins Core Measure Documentation - Palliative Care Palliative Care/ Comfort Measures: Not Applicable - Core Measures Any of the following diagnoses?: none - VTE Discharge Requirements Deep Vein Thrombosis/Pulmonary Embolism Present on Admission: No Exam - Physical Exam Narrative exam: VITAL SIGNS: Reviewed. GENERAL: The patient appeared well nourished and normally developed. Vital signs as documented. HEAD: No signs of head trauma. EYES: Pupils are equal. Extraocular motions intact. EARS: Hearing grossly intact. MOUTH: Oropharynx is normal. NECK: No adenopathy, no JVD. CHEST: Chest with clear breath sounds bilaterally. No wheezes, rales, or rhonchi. CARDIAC: Regular rate and rhythm. S1 and S2, without murmurs, gallops, or rubs. VASCULAR: No Edema. Peripheral pulses normal and equal in all extremities. ABDOMEN: Soft, dull tenderness no rebound or guarding.. No sign of distention. no masses palpated. Bowel Sounds normal. MUSCULOSKELETAL: Good range of motion of all major joints. Extremities without clubbing, cyanosis or edema. NEUROLOGIC EXAM: Alert and oriented x 3. No focal sensory or strength deficits. Speech normal. Follows commands. PSYCHIATRIC: Mood normal. SKIN: No rash or lesions. - Constitutional Vitals: Temp Pulse Resp BP Pulse Ox 97.6 F 68 18 107/55 95 12/09/16 07:00 12/09/16 07:00 12/09/16 07:00 12/09/16 07:00 12/09/16 09:01 Plan Activity: advance as tolerated, fall precautions Diet: regular Special Instructions: record daily BP diary, smoking cessation Additional Instructions: follow with psychiatrist Dr Hay Follow up with: PRIMARY CARE, [Primary Care Provider] - 3-5 Days Prescriptions: traZODone [Desyrel] 300 mg PO QHS #14 tablet Acetaminophen/Codeine [Tylenol /Codeine # 3 tab] 1 tab PO Q6H PRN #10 tab PRN Reason: Pain Ciprofloxacin HCl [Ciprofloxacin TAB] 500 mg PO Q12H #10 tab metroNIDAZOLE [Flagyl TAB] 500 mg PO Q8H #7 tablet
[2016-12-09] MEDS: LEVAQUIN 750MG/150ML 750 MG/150 ML BAG IV SCH (11:11)
[2016-12-09] MEDS: LOVENOX SUB-Q SCH (11:12)
== END 2016-12-09 15:40 | disposition home or self-care (01) | DRG 392 ==
LOC: ED 15:50 → 4A 21:59 → 3A 12-08 14:16
PROVIDERS: ADMIT Internal Medicine; ATTEND Internal Medicine
PROC: 4A02XM4 Measurement of Cardiac Total Activity, External Approach (ICD-10-PCS; principal; 2016-12-07)
DX: K52.9 Noninfective gastroenteritis and colitis, unspecified (principal); M94.0 Chondrocostal junction syndrome [Tietze]; R07.89 Other chest pain; F32.9 Major depressive disorder, single episode, unspecified; F17.210 Nicotine dependence, cigarettes, uncomplicated; Z90.710 Acquired absence of both cervix and uterus; Z98.51 Tubal ligation status; Z71.6 Tobacco abuse counseling; Z82.49 Family history of ischemic heart disease and other diseases of the circulatory system
CPT/HCPCS: 36415; 71010; 71275; 74177; 78452; 80048; 80074; 81001; 82550; 82553; 83690; 84484; 85025; 85610; 93005; 93010; 93017; 96361; 96374; 96375; 96376; A9502; J1650; J1885; J1956; J2270; J2405; J2785; J7030; Q9967

== ENCOUNTER 2016-12-22 17:54 | Emergency (ER) | payer SELFPAY ==
[2016-12-22 18:05] VITALS: BP 142/104
[2016-12-22 18:46] LABS: Eosinophils % (Auto) 0.5 % (0.0-4.3); Hematocrit 49.2 % (30.3-42.9); Hemoglobin 16.3 gm/dl (10.1-14.3); Mean Corpuscular HGB Conc 33 % (30-34); Mean Corpuscular Hemoglobin 32 pg (28-32); Mean Corpuscular Volume 95 fl (79-97); Platelet Count 274 K/mm3 (140-440); Red Blood Count 5.18 M/mm3 (3.65-5.03); Red Cell Distribution Width 13.6 % (13.2-15.2); White Blood Count 9.9 K/mm3 (4.5-11.0)
[2016-12-22 18:55] LABS: Anion Gap 20 mmol/L; BUN/Creatinine Ratio 11.11; Blood Urea Nitrogen 10 mg/dL (7-17); Calcium 9.9 mg/dL (8.4-10.2); Carbon Dioxide 24 mmol/L (22-30); Chloride 99.2 mmol/L (98-107); Glucose 82 mg/dL (65-100); Potassium 4.5 mmol/L (3.6-5.0); Sodium 139 mmol/L (137-145)
== END 2016-12-22 19:35 | disposition left against medical advice (07) ==
LOC: ED 17:54
DX: F41.9 Anxiety disorder, unspecified (principal); Z53.21 Procedure and treatment not carried out due to patient leaving prior to being seen by health care provider
CPT/HCPCS: 36415; 80048; 84484; 85025; 93005; 93010

== ENCOUNTER 2017-04-22 14:48 | Emergency (ER) | payer OTHER ==
[2017-04-22 15:15] VITALS: BP 141/94
--- NOTE | 2017-04-22 15:37 | Emergency Department Report ---
Chief Complaint: Abdominal Pain Stated Complaint: ABDOMINAL PAIN - HPI History of Present Illness: This is a 46-year-old female nontoxic, well nourished in appearance, no acute signs of distress presents to the ED with c/o of abdominal pain 2 weeks. Patient also stated she feels like she is having abdominal bloating. Denies any back pain, chest pain, shortness of breath, vomiting, fever, chills, headache or stiff neck. Patient states she is nauseated. Denies any dysuria, polyuria or hematuria. Patient states her last normal bowel movement was last week. - Exam Vital Signs: Vital Signs 04/22/17 15:05 Temperature 97.4 F L Pulse Rate 102 H Respiratory 18 Rate Blood Pressure 141/94 O2 Sat by Pulse 97 Oximetry Physical Exam: GENERAL: The patient is a well-developed, well-nourished female in no apparent distress. Patient is alert and acting appropriately for age. Alert and oriented 3, no apparent distress, normal gait, atraumatic. ABDOMEN: Soft, distended, and tender generalized abdomen. Positive bowel sounds. No hepatosplenomegaly was noted. No guarding or rebound tenderness, negative epigastric bruit. Negative psoas sign, negative amezcua sign, negative McBurneys sign MSE screening note: Focused history and physical exam performed. Due to findings the following was ordered: 1- This initial assessment/diagnostic orders/clinical plan/ treatment(s) is/are subject to change based on pt's health status, clinical progression and re- assessment by fellow clinical providers in the ED. Further treatment and workup at subsequent clinical provers discretion. Patient/guardians urged not to elope from ED as their condition may be serious if not clinically assessed and managed. 2-CBC, CMP, UA, lipase, amylase 3-CT of abdomen/pelvic with contrast ED Disposition for MSE Condition: Stable Instructions: Abdominal Pain (ED)
[2017-04-22 16:19] LABS: Basophils % (Auto) 1.2 % (0.0-1.8); Eosinophils % (Auto) 1.6 % (0.0-4.3); Hematocrit 46.1 % (30.3-42.9); Hemoglobin 15.4 gm/dl (10.1-14.3); Mean Corpuscular HGB Conc 33 % (30-34); Mean Corpuscular Hemoglobin 32 pg (28-32); Mean Corpuscular Volume 95 fl (79-97); Platelet Count 239 K/mm3 (140-440); Red Blood Count 4.85 M/mm3 (3.65-5.03); Red Cell Distribution Width 13.6 % (13.2-15.2); White Blood Count 7.3 K/mm3 (4.5-11.0)
[2017-04-22 16:48] LABS: Alanine Aminotransferase 24 units/L (7-56); Albumin/Globulin Ratio 1.3 %; Alkaline Phosphatase 125 units/L (35-129); Amylase 110 units/L (27-131); Anion Gap 18 mmol/L; BUN/Creatinine Ratio 13; Bilirubin,Total < 0.20 mg/dL (0.1-1.2); Blood Urea Nitrogen 12 mg/dL (7-17); Calcium 9.2 mg/dL (8.4-10.2); Carbon Dioxide 25 mmol/L (22-30); Glucose 121 mg/dL (65-100); Lipase 85 units/L (13-60); Potassium 4.7 mmol/L (3.6-5.0); Sodium 139 mmol/L (137-145); Total Protein 7.1 g/dL (6.3-8.2)
== END 2017-04-22 19:27 | disposition left against medical advice (07) ==
LOC: ED 14:48
DX: R10.9 Unspecified abdominal pain (principal); Z53.21 Procedure and treatment not carried out due to patient leaving prior to being seen by health care provider
CPT/HCPCS: 36415; 80053; 82150; 83690; 85025

== ENCOUNTER 2017-05-08 22:33 | Emergency (ER) | payer OTHER ==
[2017-05-08 23:00] LABS: Basophils % (Auto) 0.9 % (0.0-1.8); Eosinophils % (Auto) 1.8 % (0.0-4.3); Hematocrit 48.1 % (30.3-42.9); Mean Corpuscular HGB Conc 33 % (30-34); Mean Corpuscular Hemoglobin 31 pg (28-32); Mean Corpuscular Volume 94 fl (79-97); Platelet Count 285 K/mm3 (140-440); Red Cell Distribution Width 13.1 % (13.2-15.2); White Blood Count 8.5 K/mm3 (4.5-11.0)
[2017-05-08 23:16] LABS: Alanine Aminotransferase 22 units/L (7-56); Albumin 4.3 g/dL (3.9-5); Albumin/Globulin Ratio 1.5 %; Alkaline Phosphatase 132 units/L (35-129); BUN/Creatinine Ratio 17; Blood Urea Nitrogen 15 mg/dL (7-17); Calcium 9.6 mg/dL (8.4-10.2); Carbon Dioxide 26 mmol/L (22-30); Glucose 113 mg/dL (65-100); Lipase 59 units/L (13-60); Total Protein 7.2 g/dL (6.3-8.2)
[2017-05-08 23:17] LABS: Anion Gap 20 mmol/L; Chloride 101.6 mmol/L (98-107); Potassium 4.4 mmol/L (3.6-5.0); Sodium 143 mmol/L (137-145)
[2017-05-09 00:18] LABS: Bilirubin,Urine NEG (Negative); Blood,Urine NEG (Negative); Ketones,Urine NEG (Negative); Leukocyte Esterase,Urine NEG (Negative); Mucus,Urine FEW /HPF; Nitrite,Urine NEG (Negative); Protein,Urine <15 mg/dL mg/dL (Negative); Urobilinogen,Urine < 2.0 mg/dL (<2.0)
[2017-05-09] MEDS ORDERED: ZOFRAN IV ONE ×2 (06:25→10:44)
[2017-05-09] MEDS ORDERED: NACL 0.9% 1000 ML 1,000 ML IV ONE (06:25)
[2017-05-09] MEDS ORDERED: DILAUDID IV ONE ×2 (06:26→10:44)
[2017-05-09] MEDS ORDERED: DILAUDID ONE (07:45)
--- NOTE | 2017-05-09 08:16 | Cat Scan Report ---
CT of the abdomen and pelvis with IV and oral contrast. History: Abdominal pain and nausea. Findings: The liver, spleen, and pancreas are normal. The gallbladder is contracted. The kidneys are normal in size and configuration with no evidence of mass or hydronephrosis. The adrenal glands are normal. There is no retro-peritoneal adenopathy. No pelvic masses or abnormal fluid collections are seen. There is no evidence of appendicitis. A few diverticula are seen in the distal colon, but no radiographic evidence of diverticulitis is present. Impression: Mild diverticulosis with no evidence of diverticulitis. 2. The gallbladder appears contracted resulting in apparent mild thickening of the gallbladder perales, but this finding is unchanged compared to study on December 07, 2016. No pericholecystic inflammation or fluid is seen.
--- NOTE | 2017-05-09 10:48 | Emergency Department Report ---
ED Abdominal Pain HPI - General Chief Complaint: Abdominal Pain Stated Complaint: ABD PAIN Time Seen by Provider: 05/09/17 06:17 Source: patient Mode of arrival: Ambulatory Limitations: No Limitations - History of Present Illness Initial Comments: 46-year-old female with a past medical history previous tubal ligation and hysterectomy presents to the hospital complaints of abdominal pain 2 weeks. Pain is gradually increased. Patient complains of pain across her entire upper abdomen with radiates to the entire abdomen. Pain is constant, worse with palpation, no alleviating factors. Patient feels like her abdomen is swollen and has not. Positive nausea without vomiting, fever, diarrhea, melena, hematochezia, or hematemesis. Patient was admitted here in November for abdominal pain as well and was admitted for treatment of colitis (treated with antibiotics ) and had chest pain workup as well. No PMD Severity scale (0 -10): 8 - Related Data Previous Rx's Medication Instructions Recorded Last Taken Type Acetaminophen/Codeine [Tylenol 1 tab PO Q6H PRN #10 tab 12/09/16 Unknown Rx /Codeine # 3 tab] Ciprofloxacin HCl [Ciprofloxacin 500 mg PO Q12H #10 tab 12/09/16 Unknown Rx TAB] metroNIDAZOLE [Flagyl TAB] 500 mg PO Q8H #7 tablet 12/09/16 Unknown Rx traZODone [Desyrel] 300 mg PO QHS #14 tablet 12/09/16 Unknown Rx HYDROcodone/APAP 5-325 [[place] 1 each PO Q6HR PRN #20 tablet 05/09/17 Unknown Rx 5/325] Ondansetron [Zofran Odt] 4 mg PO Q8HR PRN #30 tab.rapdis 05/09/17 Unknown Rx Allergies Allergy/AdvReac Type Severity Reaction Status Date / Time No Known Allergies Allergy Verified 04/22/17 15:05 ED Review of Systems ROS: Stated complaint: ABD PAIN Other details as noted in HPI Comment: All other systems reviewed and negative Other: Constitutional: No fevers chills Eyes: No eye pain visual changes ENT: No ear pain or throat pain Neck: Denies pain Respiratory: Denies cough wheezing shortness of breath Cardiovascular: Denies chest pain, palpitations, syncope GI: As per HPI : Denies dysuria Musculoskeletal: Denies back pain Skin: Denies rash, lesions, erythema Neurologic: Denies headache, numbness, weakness Psychiatric: Denies suicidal ideation, hallucinations ED Past Medical Hx - Past Medical History Hx Congestive Heart Failure: No Hx Diabetes: No Hx Asthma: Yes Hx COPD: No Hx HIV: No Additional medical history: Hx. of neck injury @ age 7 - Surgical History Additional Surgical History: Tubal ligation. hysterectomy - Social History Smoking Status: Current Every Day Smoker Substance Use Type: None, Marijuana - Medications Home Medications: Home Medications Medication Instructions Recorded Confirmed Last Taken Type Acetaminophen/Codeine [Tylenol 1 tab PO Q6H PRN #10 tab 12/09/16 Unknown Rx /Codeine # 3 tab] Ciprofloxacin HCl [Ciprofloxacin 500 mg PO Q12H #10 tab 12/09/16 Unknown Rx TAB] metroNIDAZOLE [Flagyl TAB] 500 mg PO Q8H #7 tablet 12/09/16 Unknown Rx traZODone [Desyrel] 300 mg PO QHS #14 tablet 12/09/16 Unknown Rx HYDROcodone/APAP 5-325 [[place] 1 each PO Q6HR PRN #20 tablet 05/09/17 Unknown Rx 5/325] Ondansetron [Zofran Odt] 4 mg PO Q8HR PRN #30 tab.rapdis 05/09/17 Unknown Rx ED Physical Exam - General Limitations: No Limitations - Other Other exam information: General: No limitations, moderate distress secondary to pain Head exam: Atraumatic, normocephalic Eyes exam: Normal appearance ENT: Moist mucous membrane, normal oropharynx Neck exam: Normal inspection, full range of motion, no meningismus nontender Respiratory exam: Clear to auscultation bilateral, no wheezes, rales, crackles Cardiovascular: Normal rate and rhythm, normal heart sounds Abdomen: Soft, nondistended, denies tenderness, normal bowel sounds, no rebound Extremity: Full range of motion normal inspection no deformity Back: Normal Inspection, full range of motion, no tenderness Neurologic: Alert, oriented x3, cranial nerves intact, no motor or sensory deficit Psychiatric: normal affect, normal mood Skin: Warm, dry, intact ED Course Vital Signs 05/08/17 05/09/17 05/09/17 22:39 00:48 00:49 Temperature 98 F 97.8 F Pulse Rate 112 H 74 Respiratory 18 18 18 Rate Blood Pressure 144/94 Blood Pressure 148/94 [Left] O2 Sat by Pulse 98 99 98 Oximetry 12/05/09/17 05/09/17 05:06 06:35 07:32 Temperature Pulse Rate 74 68 Respiratory 16 18 16 Rate Blood Pressure Blood Pressure 122/86 122/78 [Left] O2 Sat by Pulse 100 99 100 Oximetry 05/09/17 05/09/17 07:36 08:33 Temperature 97.9 F Pulse Rate 76 Respiratory 16 16 Rate Blood Pressure Blood Pressure 122/81 [Left] O2 Sat by Pulse 100 Oximetry - Reevaluation(s) Reevaluation #1: 05/09/17 10:54 Patient received Zofran, dialudid and normal saline with improvement in tachycardia and appeared patient states that pain is returning at this time additional Dilaudid ED Medical Decision Making - Lab Data Result diagrams: 05/08/17 22:45 05/08/17 22:45 Lab Results 05/08/17 05/08/17 05/09/17 Range/Units 22:45 22:45 00:03 WBC 8.5 (4.5-11.0) K/mm3 RBC 5.10 H (3.65-5.03) M/mm3 Hgb 16.0 H (10.1-14.3) gm/dl Hct 48.1 H (30.3-42.9) % MCV 94 (79-97) fl MCH 31 (28-32) pg MCHC 33 (30-34) % RDW 13.1 L (13.2-15.2) % Plt Count 285 (140-440) K/mm3 Lymph % (Auto) 29.2 (13.4-35.0) % [place] % (Auto) 6.6 (0.0-7.3) % Eos % (Auto) 1.8 (0.0-4.3) % Baso % (Auto) 0.9 (0.0-1.8) % Lymph # 2.5 (1.2-5.4) K/mm3 [place] # 0.6 (0.0-0.8) K/mm3 Eos # 0.2 (0.0-0.4) K/mm3 Baso # 0.1 (0.0-0.1) K/mm3 Seg Neutrophils % 61.5 (40.0-70.0) % Seg Neutrophils # 5.2 (1.8-7.7) K/mm3 Sodium 143 (137-145) mmol/L Potassium 4.4 (3.6-5.0) mmol/L Chloride 101.6 (98-107) mmol/L Carbon Dioxide 26 (22-30) mmol/L Anion Gap 20 mmol/L BUN 15 (7-17) mg/dL Creatinine 0.9 (0.7-1.2) mg/dL Estimated GFR > 60 ml/min BUN/Creatinine Ratio 17 % Glucose 113 H (65-100) mg/dL Calcium 9.6 (8.4-10.2) mg/dL Total Bilirubin 0.20 (0.1-1.2) mg/dL AST 17 (5-40) units/L ALT 22 (7-56) units/L Alkaline Phosphatase 132 H (35-129) units/L Total Protein 7.2 (6.3-8.2) g/dL Albumin 4.3 (3.9-5) g/dL Albumin/Globulin Ratio 1.5 % Lipase 59 (13-60) units/L Urine Color Yellow (Yellow) Urine Turbidity Clear (Clear) Urine pH 5.0 (5.0-7.0) Ur Specific [place] 1.023 (1.003-1.030) Urine Protein <15 mg/dl (Negative) mg/dL Urine Glucose (UA) Neg (Negative) mg/dL Urine Ketones Neg (Negative) mg/dL Urine Blood Neg (Negative) Urine Nitrite Neg (Negative) Urine Bilirubin Neg (Negative) Urine Urobilinogen < 2.0 (<2.0) mg/dL Ur Leukocyte Esterase Neg (Negative) Urine WBC (Auto) 1.0 (0.0-6.0) /HPF Urine RBC (Auto) 2.0 (0.0-6.0) /HPF U Epithel Cells (Auto) 6.0 (0-13.0) /HPF Urine Mucus Few /HPF - Radiology Data Radiology results: report reviewed CT abdomen and pelvis with IV contrast only: Mild diverticulosis without acute colitis. The colon appears contracted resulting in apparent mild thickening of gallbladder perales but this finding is unchanged compared to 12/07/2016. No pericholecystic inflammation or fluid is seen - Medical Decision Making Patient's CT, labs, urine did not show any acute abnormalities. Gallbladder findings appear to be chronic compared to December 07 study and patient has normal LFTs and lipase. Patient was discharged home with medication for symptomatic treatment. Outpatient follow-up with PMD/clinic and GI doctor will be encouraged. - Differential Diagnosis cholecystitis, pancreatitis, abdominal infection, UTI Critical Care Time: No Critical care attestation.: If time is entered above; I have spent that time in minutes in the direct care of this critically ill patient, excluding procedure time. ED Disposition Clinical Impression: Abdominal pain Disposition: DC-01 TO HOME OR SELFCARE Is pt being admited?: No Does the pt Need Aspirin: No Condition: Stable Instructions: Abdominal Pain (ED) Additional Instructions: Take the medication as prescribed. Follow up with GI doctor and clinic/primary care doctor provided. Return if symptoms worsen as indicated by your discharge instructions Prescriptions: HYDROcodone/APAP 5-325 [[place] 5/325] 1 each PO Q6HR PRN #20 tablet PRN Reason: Pain Ondansetron [Zofran Odt] 4 mg PO Q8HR PRN #30 tab.rapdis PRN Reason: Nausea And Vomiting Referrals: [facility] [Provider Group] - 3-5 Days JEMAL RUSS MD [Staff Physician] - 3-5 Days [facility] [Provider Group] - 3-5 Days (GI specialist) Time of Disposition: 11:00
[2017-05-09 11:52] VITALS: BP 132/85
== END 2017-05-09 11:44 | disposition home or self-care (01) ==
LOC: ED 22:33
DX: R10.10 Upper abdominal pain, unspecified (principal); F17.200 Nicotine dependence, unspecified, uncomplicated; F12.10 Cannabis abuse, uncomplicated
CPT/HCPCS: 36415; 74177; 80053; 81001; 83690; 85025; 96361; 96374; 96375; 96376; 99284; J1170; J2405; J7030; Q9967

== ENCOUNTER 2017-07-14 15:40 | Emergency (ER) | payer SELFPAY ==
[2017-07-14] MEDS ORDERED: NACL 0.9% 1000 ML 1,000 ML IV ONE ×2 (18:47→19:22)
[2017-07-14] MEDS ORDERED: ZOFRAN IV ONE (18:47)
[2017-07-14] MEDS ORDERED: MORPHINE IV ONE (18:47)
[2017-07-14] MEDS ORDERED: PEPCID IV ONE (18:48)
--- NOTE | 2017-07-14 18:51 | Emergency Department Report ---
Blank Doc - Documentation Documentation: 46-year-old female with a past history of colitis requiring antibiotic treatment in previous hysterectomy and tubal ligation presents to the hospital complaining of abdominal pain times 2 weeks. Pain is generalized but worse in the lower abdomen. Positive associated diarrhea without fever, melena, hematochezia associated urinary frequency. + nausea no vomiting Labs ordered: UA, CMP, lipase, CBC Labs ordered: Morphine IV, Zofran, normal saline CT abdomen and pelvis IV contrast ordered pending lab results
[2017-07-14 19:07] LABS: Bilirubin,Urine NEG (Negative); Blood,Urine NEG (Negative); Color,Urine Yellow (Yellow); Mucus,Urine FEW /HPF; Nitrite,Urine NEG (Negative); Protein,Urine <15 mg/dL mg/dL (Negative); Urobilinogen,Urine < 2.0 mg/dL (<2.0)
[2017-07-14 19:20] LABS: Basophils % (Auto) 0.5 % (0.0-1.8); Eosinophils # (Auto) 0.1 K/mm3 (0.0-0.4); Eosinophils % (Auto) 1.2 % (0.0-4.3); Hematocrit 45.7 % (30.3-42.9); Hemoglobin 15.2 gm/dl (10.1-14.3); Lymphocytes # (Auto) 2.1 K/mm3 (1.2-5.4); Lymphocytes % (Auto) 27.8 % (13.4-35.0); Mean Corpuscular HGB Conc 33 % (30-34); Mean Corpuscular Hemoglobin 32 pg (28-32); Mean Corpuscular Volume 95 fl (79-97); Monocytes # (Auto) 0.6 K/mm3 (0.0-0.8); Monocytes % (Auto) 7.4 % (0.0-7.3); Platelet Count 242 K/mm3 (140-440); Red Blood Count 4.82 M/mm3 (3.65-5.03); Red Cell Distribution Width 13.6 % (13.2-15.2)
[2017-07-14 19:48] LABS: Alanine Aminotransferase 21 units/L (7-56); Albumin 4.3 g/dL (3.9-5); BUN/Creatinine Ratio 16; Blood Urea Nitrogen 11 mg/dL (7-17); Calcium 9.3 mg/dL (8.4-10.2); Hemolysis Index 30; Lipase 272 units/L (13-60)
--- NOTE | 2017-07-14 20:50 | Cat Scan Report ---
FINAL REPORT PROCEDURE: CT abdomen and pelvis with contrast. TECHNIQUE: Computerized axial tomography of the abdomen and pelvis was performed after the IV injection of iodinated nonionic contrast. HISTORY: Abdominal pain, nausea and diarrhea, urinary frequency. COMPARISON: CT abdomen and pelvis 05/09/2017. FINDINGS: The lung bases are clear. There are no pleural effusions. The heart size is normal. The liver, pancreas and spleen appear normal. The gallbladder is present. The adrenal glands are not enlarged. Both kidneys appear normal in size and configuration. The abdominal aorta has a normal caliber. There is no retroperitoneal adenopathy. The unopacified gastrointestinal tract is unremarkable. A normal appendix is visible. There are several diverticula in the sigmoid colon. The bladder is unremarkable. The uterus has been removed. The regional skeleton appears intact. IMPRESSION: Mild colonic diverticulosis. Previous hysterectomy. No evidence of acute disease in the abdomen or pelvis.
--- NOTE | 2017-07-14 21:36 | Emergency Department Report ---
ED Abdominal Pain HPI - General Chief Complaint: Abdominal Pain Stated Complaint: ABDOMINAL PAIN Time Seen by Provider: 07/14/17 18:41 Source: patient Mode of arrival: Wheelchair Limitations: No Limitations - History of Present Illness Initial Comments: 46-year-old female comes in complaint of lower abdominal pain back pain times a couple of weeks. She admits to nausea and diarrhea. She denies any vomiting vaginal bleeding pain for urination and discharge. This reports that the pain is constant. She does admit to urinary frequency. MD Complaint: abdominal pain -: week(s) (2) Location: diffuse Severity scale (0 -10): 7 Consistency: constant Improves With: medication Worsens With: movement Associated Symptoms: nausea, diarrhea - Related Data Previous Rx's Medication Instructions Recorded Last Taken Type Ciprofloxacin HCl [Ciprofloxacin 500 mg PO Q12H #10 tab 12/09/16 Unknown Rx TAB] metroNIDAZOLE [Flagyl TAB] 500 mg PO Q8H #7 tablet 12/09/16 Unknown Rx traZODone [Desyrel] 300 mg PO QHS #14 tablet 12/09/16 Unknown Rx HYDROcodone/APAP 5-325 [[place] 1 each PO Q6HR PRN #20 tablet 05/09/17 Unknown Rx 5/325] Acetaminophen/Codeine [Tylenol 1 tab PO Q6H PRN #12 tab 07/14/17 Unknown Rx /Codeine # 3 tab] Ondansetron [Zofran ODT TAB] 4 mg PO Q8HR PRN #15 tab.rapdis 07/14/17 Unknown Rx Allergies Allergy/AdvReac Type Severity Reaction Status Date / Time No Known Allergies Allergy Verified 04/22/17 15:05 ED Review of Systems ROS: Stated complaint: ABDOMINAL PAIN Other details as noted in HPI Constitutional: denies: chills, fever Eyes: denies: eye pain, eye discharge, vision change ENT: denies: ear pain, throat pain Respiratory: denies: cough, shortness of breath, wheezing Cardiovascular: denies: chest pain, palpitations Gastrointestinal: abdominal pain, nausea, diarrhea Genitourinary: denies: urgency, dysuria, discharge Musculoskeletal: denies: back pain, joint swelling, arthralgia Skin: denies: rash, lesions Neurological: denies: headache, weakness, paresthesias Psychiatric: denies: anxiety, depression Hematological/Lymphatic: denies: easy bleeding, easy bruising ED Past Medical Hx - Past Medical History Previous Medical History?: Yes Hx Congestive Heart Failure: No Hx Diabetes: No Hx Asthma: Yes Hx COPD: No Hx HIV: No Additional medical history: Hx. of neck injury @ age 7 - Surgical History Past Surgical History?: Yes Additional Surgical History: Tubal ligation. hysterectomy - Social History Smoking Status: Current Every Day Smoker Substance Use Type: None - Medications Home Medications: Home Medications Medication Instructions Recorded Confirmed Last Taken Type Ciprofloxacin HCl [Ciprofloxacin 500 mg PO Q12H #10 tab 12/09/16 Unknown Rx TAB] metroNIDAZOLE [Flagyl TAB] 500 mg PO Q8H #7 tablet 12/09/16 Unknown Rx traZODone [Desyrel] 300 mg PO QHS #14 tablet 12/09/16 Unknown Rx HYDROcodone/APAP 5-325 [[place] 1 each PO Q6HR PRN #20 tablet 05/09/17 Unknown Rx 5/325] Acetaminophen/Codeine [Tylenol 1 tab PO Q6H PRN #12 tab 07/14/17 Unknown Rx /Codeine # 3 tab] Ondansetron [Zofran ODT TAB] 4 mg PO Q8HR PRN #15 tab.rapdis 07/14/17 Unknown Rx ED Physical Exam - General Limitations: No Limitations General appearance: alert, in no apparent distress - Head Head exam: Present: atraumatic, normocephalic - Eye Eye exam: Present: normal appearance - ENT ENT exam: Present: mucous membranes moist - Neck Neck exam: Present: normal inspection - Respiratory Respiratory exam: Present: normal lung sounds bilaterally - Cardiovascular Cardiovascular Exam: Present: regular rate, normal rhythm. Absent: systolic murmur, diastolic murmur, rubs, gallop - GI/Abdominal GI/Abdominal exam: Present: soft, tenderness, guarding, normal bowel sounds - Extremities Exam Extremities exam: Present: normal inspection - Neurological Exam Neurological exam: Present: alert, oriented X3 - Psychiatric Psychiatric exam: Present: normal affect, normal mood - Skin Skin exam: Present: warm, dry, intact, normal color. Absent: rash ED Course Vital Signs 07/14/17 07/14/17 16:32 19:05 Temperature 98.6 F Pulse Rate 79 Respiratory 16 18 Rate Blood Pressure 136/85 O2 Sat by Pulse 97 Oximetry ED Medical Decision Making - Lab Data Result diagrams: 07/14/17 19:11 02/19/18 19:11 - Radiology Data Radiology results: report reviewed FINAL REPORT PROCEDURE: CT abdomen and pelvis with contrast. TECHNIQUE: Computerized axial tomography of the abdomen and pelvis was performed after the IV injection of iodinated nonionic contrast. HISTORY: Abdominal pain, nausea and diarrhea, urinary frequency. COMPARISON: CT abdomen and pelvis 05/09/2017. FINDINGS: The lung bases are clear. There are no pleural effusions. The heart size is normal. The liver, pancreas and spleen appear normal. The gallbladder is present. The adrenal glands are not enlarged. Both kidneys appear normal in size and configuration. The abdominal aorta has a normal caliber. There is no retroperitoneal adenopathy. The unopacified gastrointestinal tract is unremarkable. A normal appendix is visible. There are several diverticula in the sigmoid colon. The bladder is unremarkable. The uterus has been removed. The regional skeleton appears intact. IMPRESSION: Mild colonic diverticulosis. Previous hysterectomy. No evidence of acute disease in the abdomen or pelvis. Transcribed By: MRM Dictated By: MAI PARK MD Electronically Authenticated By: MAI PARK MD Signed Date/Time: 07/14/17 1646 - Medical Decision Making Patient has been evaluated by this provider and Dr. Dykes in fast track. Appropriate labs and CT was ordered. Abnormal with elevated lipase with no issues of her gallbladder. She had a CT that showed mild colonic diverticulosis as well as previous hysterectomy no evidence of acute disease in the abdomen or pelvis. Discussed patient that we will refer her to a materials management supervisor for further follow-up. Patient verbalized understanding. Critical care attestation.: If time is entered above; I have spent that time in minutes in the direct care of this critically ill patient, excluding procedure time. ED Disposition Clinical Impression: Gastroenteritis Abdominal pain Qualifiers: Abdominal location: generalized Qualified Code(s): R10.84 - Generalized abdominal pain Disposition: DC-01 TO HOME OR SELFCARE Is pt being admited?: No Does the pt Need Aspirin: No Condition: Stable Instructions: Abdominal Pain (ED) Additional Instructions: Please follow up with [facility] for further evaluation. Also lists a materials management supervisor as well from the follow-up. Prescriptions: Acetaminophen/Codeine [Tylenol /Codeine # 3 tab] 1 tab PO Q6H PRN #12 tab PRN Reason: Pain Ondansetron [Zofran ODT TAB] 4 mg PO Q8HR PRN #15 tab.rapdis PRN Reason: Nausea And Vomiting Referrals: PRIMARY CARE, [Primary Care Provider] - 3-5 Days [facility] [Provider Group] - 3-5 Days NOELLE MATA MD [Staff Physician] - 3-5 Days Forms: Work/School Release Form(ED), Accompanied Note
[2017-07-14 22:05] VITALS: BP 139/81
== END 2017-07-14 22:03 | disposition home or self-care (01) ==
LOC: ED 15:40
DX: K52.9 Noninfective gastroenteritis and colitis, unspecified (principal); F17.200 Nicotine dependence, unspecified, uncomplicated
CPT/HCPCS: 36415; 74177; 80053; 81001; 83690; 85025; 96361; 96374; 96375; 99284; J2270; J2405; J7030; Q9967

== ENCOUNTER 2017-08-13 19:06 | Emergency (ER) | payer SELFPAY ==
[2017-08-13 20:14] VITALS: BP 142/89
--- NOTE | 2017-08-13 22:32 | XRay Report ---
FINAL REPORT EXAM: XR SPINE LUMBOSACRAL 2-3V HISTORY: lower back pain TECHNIQUE: Three views lumbosacral spine Comparison: 10/30/2016 FINDINGS: Normal lumbar lordosis. Multilevel Schmorl's nodes and marginal osteophytes. Disc spaces are preserved. There is mild levoscoliosis. Pedicles are intact. SI joints are open. IMPRESSION: Mild levoscoliosis. Schmorl's nodes and marginal osteophytic change without compression fracture or subluxation. No fracture identified. No significant change from previous.
== END 2017-08-14 01:10 | disposition left against medical advice (07) ==
LOC: ED 19:06
DX: M54.9 Dorsalgia, unspecified (principal); Z53.21 Procedure and treatment not carried out due to patient leaving prior to being seen by health care provider
CPT/HCPCS: 72100

== ENCOUNTER 2017-09-12 20:47 | Emergency (ER) | payer SELFPAY ==
--- NOTE | 2017-09-12 22:19 | XRay Report ---
FINAL REPORT PROCEDURE: XR ANKLE 2V RT TECHNIQUE: RIGHT ankle radiographs, AP and lateral views. HISTORY: S/P fall; RIGHT ANKLE PAIN COMPARISON: No prior studies are available for comparison. FINDINGS: Fracture (s) and/or Dislocation(s): None. Alignment: Normal. Joint space(s): Mild narrowing of the joint spaces. Slight spur formation off the osseous structures Soft tissues: Normal. Bone mineralization: Normal. Foreign bodies: Normal. Calcaneal spurring: Small inferior spur IMPRESSION: There is no evidence of an acute fracture or dislocation. Mild arthritis..
--- NOTE | 2017-09-12 22:21 | XRay Report ---
FINAL REPORT PROCEDURE: XR FOOT 2V RT TECHNIQUE: RIGHT foot radiographs, AP and lateral views. HISTORY: s/p fall; RIGHT FOOT PAIN COMPARISON: No prior studies are available for comparison. FINDINGS: Fracture (s) and/or Dislocation(s): None . Alignment: Normal. Joint space(s): Normal. Soft tissues: Normal. Bone mineralization: Normal. Foreign bodies: None. Calcaneal spurring: Small inferior spur IMPRESSION: No evidence of an acute fracture or dislocation.
[2017-09-13 00:40] VITALS: BP 132/94
[2017-09-13] MEDS ORDERED: MOTRIN PO ONE (02:01)
[2017-09-13] MEDS ORDERED: MOTRIN ONE (02:02)
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
== END 2017-09-13 03:13 | disposition home or self-care (01) ==
LOC: ED 20:47
DX: S93.402A Sprain of unspecified ligament of left ankle, initial encounter (principal); M77.31 Calcaneal spur, right foot; F17.200 Nicotine dependence, unspecified, uncomplicated; F12.10 Cannabis abuse, uncomplicated; J45.909 Unspecified asthma, uncomplicated; Z98.51 Tubal ligation status; Z90.710 Acquired absence of both cervix and uterus; W19.XXXA Unspecified fall, initial encounter; Y93.89 Activity, other specified; Y92.89 Other specified places as the place of occurrence of the external cause; Y99.8 Other external cause status
CPT/HCPCS: 99283

== ENCOUNTER 2018-02-07 23:56 | Emergency (ER) | payer SELFPAY ==
[2018-02-08 01:03] VITALS: BP 159/87
--- NOTE | 2018-02-08 01:44 | XRay Report ---
FINAL REPORT PROCEDURE: XR HAND 3+V RT TECHNIQUE: RIGHT hand radiographs, AP and lateral views. CPT 27626-TM HISTORY: Pain COMPARISON: No prior studies are available for comparison. FINDINGS: Fracture (s) and/or Dislocation(s): None . Alignment: Normal . Joint space(s): Normal . Soft tissues: Normal . Bone mineralization: Normal . Foreign bodies: None . IMPRESSION: Normal Examination .
--- NOTE | 2018-02-08 01:50 | XRay Report ---
FINAL REPORT PROCEDURE: XR FOREARM RT TECHNIQUE: RIGHT forearm radiographs, AP and lateral views. CPT 89003 HISTORY: pain COMPARISON: No prior studies are available for comparison. FINDINGS: Fracture (s) and/or Dislocation(s): None . Joint space(s): Normal . Soft tissues: Normal . Bone mineralization: Normal . Foreign bodies: None . IMPRESSION: Normal Examination
== END 2018-02-08 02:14 | disposition left against medical advice (07) ==
LOC: ED 23:56
DX: M79.601 Pain in right arm (principal); Z53.21 Procedure and treatment not carried out due to patient leaving prior to being seen by health care provider

== ENCOUNTER 2019-03-20 02:48 | Emergency (ER) | payer SELFPAY ==
[2019-03-20 04:38] LABS: Basophils # (Auto) 0.1 K/mm3 (0.0-0.1); Basophils % (Auto) 0.6 % (0.0-1.8); Eosinophils # (Auto) 0.4 K/mm3 (0.0-0.4); Eosinophils % (Auto) 4.1 % (0.0-4.3); Hematocrit 43.5 % (30.3-42.9); Hemoglobin 14.5 gm/dl (10.1-14.3); Lymphocytes % (Auto) 22.5 % (13.4-35.0); Mean Corpuscular HGB Conc 33 % (30-34); Mean Corpuscular Volume 92 fl (79-97); Monocytes # (Auto) 0.6 K/mm3 (0.0-0.8); Monocytes % (Auto) 6.1 % (0.0-7.3); Platelet Count 256 K/mm3 (140-440); Red Blood Count 4.74 M/mm3 (3.65-5.03); Red Cell Distribution Width 13.7 % (13.2-15.2)
[2019-03-20 04:49] LABS: Albumin 4.5 g/dL (3.9-5); Calcium 10.1 mg/dL (8.4-10.2)
[2019-03-20 04:58] LABS: Color,Urine Yellow (Yellow)
[2019-03-20 04:59] LABS: Bilirubin,Urine NEG (Negative); Blood,Urine NEG (Negative); Mucus,Urine FEW /HPF; Urobilinogen,Urine < 2.0 mg/dL (<2.0); WBC,Urine < 1.0 /HPF (0.0-6.0)
[2019-03-20] MEDS ORDERED: HYDROcodone/ACETAMINOPHEN 5-325 MG TAB PO ONE (05:15)
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
--- NOTE | 2019-03-20 05:45 | XRay Report ---
THORACIC SPINE 3 VIEWS 0528 INDICATION: thoracic back pain COMPARISON: 10/30/2016 FINDINGS: Slight kyphoscoliosis is seen. Mild diffuse degenerative changes are again noted. No fractu res or subluxations are seen. Signer Name: Celso Pagan MD Signed: 03/20/2019 5:41 AM Workstation Name: [id number]
[2019-03-20] MEDS ORDERED: CYCLOBENZAPRINE 10 MG TAB PO ONE (06:22)
[2019-03-20 06:36] VITALS: BP 130/97
== END 2019-03-20 06:35 | disposition home or self-care (01) ==
LOC: ED 02:48
DX: S39.012A Strain of muscle, fascia and tendon of lower back, initial encounter (principal); X58.XXXA Exposure to other specified factors, initial encounter; Y93.89 Activity, other specified; Y92.89 Other specified places as the place of occurrence of the external cause; Y99.8 Other external cause status
CPT/HCPCS: 36415; 72072; 80053; 81001; 83690; 85025

== ENCOUNTER 2019-04-05 23:11 | Emergency (ER) | payer SELFPAY ==
[2019-04-05] MEDS ORDERED: ASPIRIN 325 MG TAB PO ONE (23:20)
[2019-04-05 23:55] LABS: Basophils # (Auto) 0.1 K/mm3 (0.0-0.1); Basophils % (Auto) 1.2 % (0.0-1.8); Eosinophils # (Auto) 0.9 K/mm3 (0.0-0.4); Eosinophils % (Auto) 7.9 % (0.0-4.3); Hematocrit 47.3 % (30.3-42.9); Hemoglobin 15.6 gm/dl (10.1-14.3); Lymphocytes # (Auto) 2.5 K/mm3 (1.2-5.4); Lymphocytes % (Auto) 21.1 % (13.4-35.0); Mean Corpuscular HGB Conc 33 % (30-34); Mean Corpuscular Volume 92 fl (79-97); Monocytes # (Auto) 0.6 K/mm3 (0.0-0.8); Monocytes % (Auto) 4.9 % (0.0-7.3); Platelet Count 304 K/mm3 (140-440); Red Blood Count 5.12 M/mm3 (3.65-5.03); Red Cell Distribution Width 13.6 % (13.2-15.2)
--- NOTE | 2019-04-06 00:13 | XRay Report ---
CHEST 1 VIEW INDICATION / CLINICAL INFORMATION: Chest Pain. COMPARISON: 12/07/2016 FINDINGS: SUPPORT DEVICES: None. HEART / MEDIASTINUM: No significant abnormality. LUNGS / PLEURA: No significant pulmonary or pleural abnormality. No pneumothorax. ADDITIONAL FINDINGS: No significant additional findings. IMPRESSION: 1. No acute findings. No interval change Signer Name: Loretta Márquez MD Signed: 04/06/2019 12:09 AM Workstation Name: [id number]
[2019-04-06 00:17] LABS: BUN/Creatinine Ratio 11; Blood Urea Nitrogen 12 mg/dL (7-17); Calcium 9.7 mg/dL (8.4-10.2); Hemolysis Index 26
[2019-04-06] MEDS ORDERED: oxyCODONE /ACETAMINOPHEN 5-325MG TAB PO ONE (03:42)
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
--- NOTE | 2019-04-06 04:24 | Cat Scan Report ---
CT abdomen pelvis wo con INDICATION / CLINICAL INFORMATION: epigastric pain. Nausea TECHNIQUE: Axial CT imaging of abdomen and pelvis was obtained without contrast. Coronal and sagittal reformatte d imaging obtained and reviewed. All CT scans at this location are performed using CT dose reduction for ALARA by means of automated exposure control. COMPARISON: Prior CT, 07/14/2017 FINDINGS: CT abdomen without contrast demonstrates grossly normal appearance of the liver, spleen, pancreas, ki dneys, and adrenal glands. No obvious gallbladder pathology. No intrarenal calculi or hydronephrosis. There is small hiatal hernia. CT pelvis without contrast demonstrates normal appearance of the appendix. There is mild sigmoid dive rticulosis without CT evidence of diverticulitis. GI tract is otherwise grossly normal. Visualized lung bases are clear. No significant osseous abnormality. IMPRESSION: 1. No acute finding within the abdomen or pelvis. 2. Mild sigmoid diverticulosis. Signer Name: Loretta Márquez MD Signed: 04/06/2019 4:19 AM Workstation Name: [id number]
[2019-04-06 05:45] VITALS: BP 126/81
== END 2019-04-06 05:35 | disposition home or self-care (01) ==
LOC: ED 23:11
DX: R10.13 Epigastric pain (principal); J45.909 Unspecified asthma, uncomplicated; F17.200 Nicotine dependence, unspecified, uncomplicated; Z90.710 Acquired absence of both cervix and uterus; Z98.51 Tubal ligation status; Z79.899 Other long term (current) drug therapy
CPT/HCPCS: 36415; 71045; 74176; 80048; 84484; 85025; 93005; 93010

== ENCOUNTER 2019-06-08 23:38 | Emergency (ER) | payer SELFPAY ==
[2019-06-08 23:48] VITALS: BP 117/85
[2019-06-09] MEDS ORDERED: predniSONE 20 MG TAB PO ONE (08:00)
[2019-06-09] MEDS ORDERED: CYCLOBENZAPRINE 10 MG TAB PO ONE (08:00)
[2019-06-09] MEDS ORDERED: HYDROcodone/ACETAMINOPHEN 5-325 MG TAB PO ONE (08:00)
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
== END 2019-06-09 08:26 | disposition home or self-care (01) ==
LOC: ED 23:38
DX: M54.40 Lumbago with sciatica, unspecified side (principal); F17.200 Nicotine dependence, unspecified, uncomplicated
CPT/HCPCS: 99282; J7512

== ENCOUNTER 2019-12-27 17:17 | Emergency (ER) | payer SELFPAY ==
--- NOTE | 2019-12-27 18:45 | Event Note ---
ED Screening Note ED Screening Note: states she fell through a chair last night c/o lower back pain no numbness, no weakness, no bowel or bladder, no LOC This initial assessment/diagnostic orders/clinical plan/treatment(s) is/are subject to change based on patients health status, clinical progression and re- assessment by fellow clinical providers in the ED. Further treatment and workup at subsequent clinical providers discretion. Patient/guardian urged not to elope from the ED as their condition may be serious if not clinically assessed and managed. Initial orders include: XR lumbar spine
--- NOTE | 2019-12-27 19:59 | XRay Report ---
CLINICAL DATA: fall out of chair low back pain TECHNICAL DATA: AP and lateral views lumbar spine. FINDINGS: The bone mineralization is normal. Small anterior osteophytes present L3 and L4. Vertebral body heigh ts are normal. Intervertebral disc spaces are well maintained. Pedicles and spinous processes are nor mal in alignment. SI joints and sacrum are normal. IMPRESSION: Minimum degenerative changes as noted Signer Name: Kanu Richardson MD Signed: 12/27/2019 7:54 PM Workstation Name: [id number]
[2019-12-27] MEDS ORDERED: ACETAMINOPHEN 500 MG TAB PO ONE (20:08)
[2019-12-27] MEDS ORDERED: IBUPROFEN 600 MG TAB PO ONE (20:08)
--- NOTE | 2019-12-27 20:52 | Emergency Department Report ---
ED Back Pain/Injury HPI - General Chief Complaint: Back Pain/Injury Stated Complaint: BACK PAIN Time Seen by Provider: 12/27/19 18:43 Source: patient Limitations: No Limitations - History of Present Illness Initial Comments: Patient is a 49-year-old white female with a history of chronic low back pain and asthma who presents to the ED with complaint of acute onset persistent se anthony low back pain after she fell off a chair at a hotel room 24 hours ago. Patient states that her low back pain is worse with any movement or palpation of the low back. Patient denies dizziness, syncope, numbness and tingling or weakness of lower extremities bilaterally, urinary or bowel incontinence, saddle paresthesia, chest pain or shortness of breath, dysuria, urinary frequency and urgency, vaginal bleeding, hematuria, loss of consciousness or neck pain and head injury. MD Complaint: back pain, back injury, fall -: Sudden, hour(s) (24) Similar Symptoms Previously: No Place: other (at a hotel room) Radiation: none Severity: severe Severity scale (0 -10): 8 Quality: sharp, aching Consistency: constant Improves With: none Worsens With: movement, walking Context: turning/twisting, fall (fell off a chair) Associated Symptoms: denies other symptoms. denies: confusion, weakness, numbness, difficulty walking, cough, difficulty urinating, diaphoresis, incontinence, constipation, headaches, abdominal pain, loss of appetite, malaise, rash, shortness of breath, syncope - Related Data Previous Rx's Medication Instructions Recorded Last Taken Type Ciprofloxacin HCl [Ciprofloxacin 500 mg PO Q12H #10 tab 12/09/16 Unknown Rx TAB] metroNIDAZOLE [Flagyl TAB] 500 mg PO Q8H #7 tablet 12/09/16 Unknown Rx traZODone [Desyrel] 300 mg PO QHS #14 tablet 12/09/16 Unknown Rx HYDROcodone/APAP 5-325 [[place] 1 each PO Q6HR PRN #20 tablet 05/09/17 Unknown Rx 5/325] Acetaminophen/Codeine [Tylenol 1 tab PO Q6H PRN #12 tab 07/14/17 Unknown Rx /Codeine # 3 tab] Ondansetron [Zofran ODT TAB] 4 mg PO Q8HR PRN #15 tab.rapdis 07/14/17 Unknown Rx Ibuprofen [Motrin] 600 mg PO Q8H PRN #12 tablet 09/13/17 Unknown Rx Methocarbamol [Robaxin] 500 mg PO TID PRN #20 tablet 03/20/19 Unknown Rx polyethylene glycoL 3350 [Miralax 17 gm PO QDAY 7 Days #7 packet 04/06/19 Unknown Rx 3350] Ibuprofen [Motrin] 800 mg PO Q8HR PRN #30 tablet 06/09/19 Unknown Rx predniSONE [Deltasone] 20 mg PO DAILY #5 tablet 06/09/19 Unknown Rx Cyclobenzaprine [Flexeril 10 MG 10 mg PO TID PRN #10 tablet 12/27/19 Unknown Rx TAB] Ibuprofen [Motrin 800 MG tab] 800 mg PO Q8HR PRN #30 tablet 12/27/19 Unknown Rx Allergies Allergy/AdvReac Type Severity Reaction Status Date / Time No Known Allergies Allergy Verified 04/22/17 15:05 ED Review of Systems ROS: Stated complaint: BACK PAIN Other details as noted in HPI Constitutional: denies: chills, fever Eyes: denies: eye pain, eye discharge, vision change ENT: denies: ear pain, throat pain Respiratory: denies: cough, shortness of breath, wheezing Cardiovascular: denies: chest pain, palpitations Endocrine: no symptoms reported Gastrointestinal: denies: abdominal pain, nausea, vomiting, diarrhea Genitourinary: denies: urgency, dysuria, discharge Musculoskeletal: back pain (lower), arthralgia (lower back pain), myalgia. denies: joint swelling Skin: denies: rash, lesions Neurological: denies: headache, weakness, paresthesias Psychiatric: denies: anxiety, depression Hematological/Lymphatic: denies: easy bleeding, easy bruising ED Past Medical Hx - Past Medical History Previous Medical History?: Yes Hx Congestive Heart Failure: No Hx Diabetes: No Hx Asthma: Yes Hx COPD: No Hx HIV: No Additional medical history: Hx. of neck injury @ age 7, Chronic Back Pain - Surgical History Past Surgical History?: Yes Additional Surgical History: Tubal ligation. hysterectomy - Social History Smoking Status: Current Every Day Smoker Substance Use Type: None - Medications Home Medications: Home Medications Medication Instructions Recorded Confirmed Last Taken Type Ciprofloxacin HCl [Ciprofloxacin 500 mg PO Q12H #10 tab 12/09/16 Unknown Rx TAB] metroNIDAZOLE [Flagyl TAB] 500 mg PO Q8H #7 tablet 12/09/16 Unknown Rx traZODone [Desyrel] 300 mg PO QHS #14 tablet 12/09/16 Unknown Rx HYDROcodone/APAP 5-325 [[place] 1 each PO Q6HR PRN #20 tablet 05/09/17 Unknown Rx 5/325] Acetaminophen/Codeine [Tylenol 1 tab PO Q6H PRN #12 tab 07/14/17 Unknown Rx /Codeine # 3 tab] Ondansetron [Zofran ODT TAB] 4 mg PO Q8HR PRN #15 tab.rapdis 07/14/17 Unknown Rx Ibuprofen [Motrin] 600 mg PO Q8H PRN #12 tablet 09/13/17 Unknown Rx Methocarbamol [Robaxin] 500 mg PO TID PRN #20 tablet 03/20/19 Unknown Rx polyethylene glycoL 3350 [Miralax 17 gm PO QDAY 7 Days #7 packet 04/06/19 Unknown Rx 3350] Ibuprofen [Motrin] 800 mg PO Q8HR PRN #30 tablet 06/09/19 Unknown Rx predniSONE [Deltasone] 20 mg PO DAILY #5 tablet 06/09/19 Unknown Rx Cyclobenzaprine [Flexeril 10 MG 10 mg PO TID PRN #10 tablet 12/27/19 Unknown Rx TAB] Ibuprofen [Motrin 800 MG tab] 800 mg PO Q8HR PRN #30 tablet 12/27/19 Unknown Rx ED Physical Exam - General Limitations: No Limitations General appearance: alert, in no apparent distress - Head Head exam: Present: atraumatic, normocephalic, normal inspection - Eye Eye exam: Present: normal appearance, PERRL, EOMI Pupils: Present: normal accommodation - ENT ENT exam: Present: normal exam, normal orophraynx, mucous membranes moist, TM's normal bilaterally, normal external ear exam - Neck Neck exam: Present: normal inspection, full ROM. Absent: tenderness, lymphadenopathy - Respiratory Respiratory exam: Present: normal lung sounds bilaterally. Absent: respiratory distress, wheezes, rales, rhonchi, chest wall tenderness, accessory muscle use, decreased breath sounds, prolonged expiratory - Cardiovascular Cardiovascular Exam: Present: regular rate, normal rhythm, normal heart sounds. Absent: systolic murmur, diastolic murmur, rubs, gallop - GI/Abdominal GI/Abdominal exam: Present: soft, normal bowel sounds. Absent: tenderness, guarding, rebound, hyperactive bowel sounds, hypoactive bowel sounds - Extremities Exam Extremities exam: Present: normal inspection, full ROM, normal capillary refill - Back Exam Back exam: Present: normal inspection, full ROM, tenderness (Palpable lumbosacral paraspinal musculoskeletal tenderness), muscle spasm, paraspinal tenderness - Neurological Exam Neurological exam: Present: alert, oriented X3, CN II-XII intact, normal gait, reflexes normal - Psychiatric Psychiatric exam: Present: normal affect, normal mood - Skin Skin exam: Present: warm, dry, intact, normal color. Absent: rash ED Course Vital Signs 12/27/19 12/27/19 12/27/19 18:44 20:20 20:21 Temperature 98 F Pulse Rate 84 Respiratory 20 18 18 Rate Blood Pressure 128/71 O2 Sat by Pulse 98 Oximetry ED Medical Decision Making - Radiology Data Radiology results: report reviewed, image reviewed Findings [facility] [address] [place] [address] XRay Report Signed Patient: KIMBERLY MCCLURE MR#: [id number] : 1970 Acct:[id number] Age/Sex: 49 / F ADM Date: 12/27/19 Loc: ED Attending Dr: Ordering Physician: RITA CENTENO Date of Service: 12/27/19 Procedure(s): XR spine lumbosacral 2-3V Accession Number(s): [id number] cc: RITA CENTENO Fluoro Time In Minutes: CLINICAL DATA: fall out of chair low back pain TECHNICAL DATA: AP and lateral views lumbar spine. FINDINGS: The bone mineralization is normal. Small anterior osteophytes present L3 and L4. Vertebral body heights are normal. Intervertebral disc spaces are well maintained. Pedicles and spinous processes are normal in alignment. SI joints and sacrum are normal. IMPRESSION: Minimum degenerative changes as noted Signer Name: Kanu Richardson MD Signed: 12/27/2019 7:54 PM Workstation Name: [id number] Transcribed By: VIANNEY Dictated By: Kanu Richardson MD Electronically Authenticated By: Kanu Richardson MD Signed Date/Time: 12/27/191953 DD/ 52 TD/TT: - Medical Decision Making This is a 49-year-old white female with a history of chronic low back pain and asthma who presents to the ED with complaint of acute onset persistent severe low back pain after she fell off a chair at a hotel room 24 hours ago. Patient states that her low back pain is worse with any movement or palpation of the low back. In the ED, patient is alert and oriented x3 and is not in distress. Patient was treated for pain in the ED and L-spine x-ray shows no acute fractures or subluxations but minimal degenerative changes in L3 and L4 vertebral discs levels. On reevaluation, patient's pain is well controlled medications. Patient will discharge home on pain medications and muscle relaxants and was advised to follow-up with her primary care physician in 7 to 10 days for reevaluation or return to the ED immediately if symptoms get worse. - Differential Diagnosis Muscle spasm; lumbar disc disease; muscle strain Critical care attestation.: If time is entered above; I have spent that time in minutes in the direct care of this critically ill patient, excluding procedure time. ED Disposition Clinical Impression: Acute exacerbation of chronic low back pain, Strain of muscle, fascia and tendon of lower back, initial encounter, Spasm of muscle of lower back Disposition: DC-01 TO HOME OR SELFCARE Is pt being admited?: No Does the pt Need Aspirin: No Condition: Stable Instructions: Muscle Strain (ED), Muscle Spasm (ED) Additional Instructions: The lumbar x-ray showed no acute fractures or subluxations but minimal degenerative lumbar disc disease in L3 and L4 discs. Take medication with food, drink plenty of fluids and follow-up with your primary care physician in 5 to 7 days for reevaluation. Return to the ED immediately if symptoms get worse. Prescriptions: Cyclobenzaprine [Flexeril 10 MG TAB] 10 mg PO TID PRN #10 tablet PRN Reason: Muscle Spasm Ibuprofen [Motrin 800 MG tab] 800 mg PO Q8HR PRN #30 tablet PRN Reason: Pain , Severe (7-10) Referrals: [facility] [Provider Group] - 3-5 Days Time of Disposition: 20:55 Print Language: SLOVAK
[2019-12-27 21:45] VITALS: BP 141/51
== END 2019-12-27 21:49 | disposition home or self-care (01) ==
LOC: ED 17:17
DX: S39.012A Strain of muscle, fascia and tendon of lower back, initial encounter (principal); M62.830 Muscle spasm of back; J45.909 Unspecified asthma, uncomplicated; F17.200 Nicotine dependence, unspecified, uncomplicated; Z98.51 Tubal ligation status; Z90.710 Acquired absence of both cervix and uterus; Z79.1 Long term (current) use of non-steroidal anti-inflammatories (NSAID); Z79.2 Long term (current) use of antibiotics; Z79.899 Other long term (current) drug therapy; W08.XXXA Fall from other furniture, initial encounter; Y93.89 Activity, other specified; Y92.89 Other specified places as the place of occurrence of the external cause; Y99.8 Other external cause status
CPT/HCPCS: 72100